=== PATIENT | female | born 1940 | race Caucasian/White ===

== ENCOUNTER → 2017-02-19 | Outpatient (CLI) | payer MEDICARE, BC ==
[2015-11-06 18:30] VITALS: BP 124/72
[~2017-02-19] MED LIST: AZIT250T PO; CIPR500T94 PO; FAMO-63 PO; MELO7.5T29 PO; METO25TA2 PO; ONDA4TAB10 PO
--- NOTE | 2017-02-19 13:53 | RAD ---
DATE: February 19, 2017 EXAM: MAMMO DONN SCREENING BILATERAL HISTORY: Screening study. COMPARISON: 2014 and 2015. This study was interpreted with the benefit of Computerized Aided Detection (CAD). 2-D digital mammographic views of both breasts were performed in the CC and MLO projections. 3-D digital tomosynthesis of both breasts were performed in the CC and MLO projections and reviewed on a computer workstation. FINDINGS: The breast parenchyma heterogeneiously dense, which could reduce sensitivity of mammography. There are no dominant suspicious masses, suspicious microcalcifications or evidence of architectural distortion. IMPRESSION: No mammographic indicators for malignancy. BI-RADS CATEGORY: 1 NEGATIVE RECOMMENDED FOLLOW-UP: 12M 12 MONTH FOLLOW-UP PQRS compliance statement: Patient information was entered into a reminder system with a target due date February 20, 2018 for the next mammogram. Mammography is a sensitive method for finding small breast cancers, but it does not detect them all and is not a substitute for careful clinical examination. A negative mammogram does not negate a clinically suspicious finding and should not result in delay in biopsying a clinically suspicious abnormality. "Our facility is accredited by the [employer] [place] [employer] Mammography [employer]." The patient's breast density may affect the ability of mammography to detect breast cancer. There are 4 categories of breast density, A, B, C and D. Breast density A means that most of the breast tissue is replaced with adipose tissue and therefore is not dense. Breast density B means that the breast tissue is mildly dense and scattered. Breast density C means that the breast tissue is heterogeneously dense. Breast density D means that the breast tissue is very dense. Breast densities especially C and D may decrease the sensitivity of mammography to detect breast cancer. Therefore, the patient may benefit from 3-D breast mammography (3D breast tomography) as a part of their screening mammogram. Insurance may or may not pay for this additional imaging. The patient's breast density based on today's mammogram is category C.
== END | disposition home or self-care (01) ==
LOC: MAMMO 10:50
PROVIDERS: ATTEND Specialist
DX: Z12.31 Encounter for screening mammogram for malignant neoplasm of breast (principal)
CPT/HCPCS: 77063; G0202; 77067

== ENCOUNTER 2017-03-04 14:45 | Inpatient (IN) | payer MEDICARE, BC ==
[~2017-03-04] VITALS: Ht 165.1 cm; Wt 52.3 kg
[2017-03-04] MEDS ORDERED: ONDANSETRON PF 4 MG/2 ML VIAL. IV ONE (15:15)
[2017-03-04] MEDS ORDERED: IV NORMAL SALINE 1,000ML 1,000 ML IV ONE (15:15)
--- NOTE | 2017-03-04 15:15 | ED.ADGEN ---
Past History Past Medical History: Anxiety, Arthritis, Depression, Diabetes, Gallstones, GERD, Hypertension, UTI Past Surgical History: No Surgical History Smoking: Non-smoker Alcohol Use: None Drug Use: None Adult General Chief Complaint Chief Complaint Nausea and vomiting HPI HPI Patient is a 76-year-old female presents with midepigastric pain, nausea with written daily episodes of watery and loose stools. Symptoms began several days ago. Patient also reports chills, and malaise. No vomiting, CP or SOB. Review of Systems Review of Systems ROS as per HPI Current Medications Current Medications Current Medications Medications (Trade) Dose Ordered Sig/Kristina Start Time Stop Time Status Last Admin Dose Admin Famotidine (Pepcid) 20 mg 1X ONCE 03/04/17 15:30 03/04/17 15:31 DC 03/04/17 15:20 20 MG Ondansetron HCl (Zofran) 8 mg 1X ONCE 03/04/17 15:15 03/04/17 15:16 DC 03/04/17 15:15 8 MG Promethazine HCl 12.5 mg/Sodium Chloride 50.5 ml @ 101 mls/hr PRN Q6HRS PRN 03/04/17 17:00 Sodium Chloride 1,000 ml @ 40 mls/hr 1X ONCE 03/04/17 15:15 03/05/17 16:14 03/04/17 15:15 40 MLS/HR Allergies Allergies Allergies Coded Allergies Type Severity Reaction Last Updated Verified Nitrofurantoin Macrocrystal Allergy Unknown 12/31/13 Yes Sulfa (Sulfonamide Antibiotics) Allergy Unknown 10/31/13 Yes adhesive Allergy Unknown 03/04/17 Yes amoxicillin Allergy Unknown Unknown 08/20/15 Yes atenolol Allergy Unknown 10/31/13 Yes azithromycin Allergy Unknown Hives 08/20/15 Yes ciprofloxacin Allergy Unknown 03/04/17 Yes clavulanic acid Allergy Unknown Unknown 08/20/15 Yes diphenhydramine Allergy Unknown Unknown 08/20/15 Yes guaifenesin Allergy Unknown 03/04/17 Yes nitrofurantoin Allergy Unknown 12/31/13 Yes prednisone Allergy Unknown Unknown 08/20/15 Yes tetanus and diphtheria toxoids Allergy Unknown 12/31/13 Yes Physical Exam Physical Exam Constitutional: Well developed, well nourished, no acute distress. HENT: Normocephalic, atraumatic, bilateral external ears normal, oropharynx moist. Eyes: PERRLA, EOMI, conjunctiva normal. Neck: Normal range of motion, no tenderness. Cardiovascular:Heart rate regular rhythm. Lungs & Thorax: Bilateral breath sounds clear to auscultation. Abdomen: Bowel sounds normal, soft, mid-epigastric pain. Skin: Clammy. Back: No tenderness. Extremities: No tenderness. Neurologic: Alert and oriented X 3, normal motor function, normal sensory function, no focal deficits noted. Psychologic: Affect, anxious. Current Patient Data Vital Signs Vital Signs Date Time Temp Pulse Resp B/P (MAP) Pulse Ox O2 Delivery O2 Flow Rate FiO2 03/04/17 16:38 58 18 154/79 (104) 98 Room Air 03/04/17 15:02 97.9 Lab Results Laboratory Tests Test 03/04/17 15:10 03/04/17 15:40 White Blood Count 7.0 x10^3/uL (4.0-11.0) Red Blood Count 4.42 x10^6/uL (3.50-5.40) Hemoglobin 13.7 g/dL (12.0-15.5) Hematocrit 39.1 % (36.0-47.0) Mean Corpuscular Volume 88 fL (79-100) Mean Corpuscular Hemoglobin 31 pg (25-35) Mean Corpuscular Hemoglobin Concent 35 g/dL (31-37) Red Cell Distribution Width 12.3 % (11.5-14.5) Platelet Count 198 x10^3/uL (140-400) Neutrophils (%) (Auto) 75 % (31-73) H Lymphocytes (%) (Auto) 19 % (24-48) L Monocytes (%) (Auto) 5 % (0-9) Eosinophils (%) (Auto) 1 % (0-3) Basophils (%) (Auto) 1 % (0-3) Neutrophils # (Auto) 5.3 x10^3uL (1.8-7.7) Lymphocytes # (Auto) 1.3 x10^3/uL (1.0-4.8) Monocytes # (Auto) 0.3 x10^3/uL (0.0-1.1) Eosinophils # (Auto) 0.0 x10^3/uL (0.0-0.7) Basophils # (Auto) 0.0 x10^3/uL (0.0-0.2) Sodium Level 128 mmol/L (136-145) L Potassium Level 3.7 mmol/L (3.5-5.1) Chloride Level 94 mmol/L (98-107) L Carbon Dioxide Level 23 mmol/L (21-32) Anion Gap 11 (6-14) Blood Urea Nitrogen 14 mg/dL (7-20) Creatinine 0.9 mg/dL (0.6-1.0) Estimated GFR (Cockcroft-Gault) 61.0 BUN/Creatinine Ratio 16 (6-20) Glucose Level 128 mg/dL (70-99) H Calcium Level 8.2 mg/dL (8.5-10.1) L Total Bilirubin 1.1 mg/dL (0.2-1.0) H Aspartate Amino Transferase (AST) 23 U/L (15-37) Alanine Aminotransferase (ALT) 27 U/L (14-59) Alkaline Phosphatase 68 U/L (46-116) C-Reactive Protein 0.7 mg/L (0-3.3) Total Protein 6.7 g/dL (6.4-8.2) Albumin 4.0 g/dL (3.4-5.0) Albumin/Globulin Ratio 1.5 (1.0-1.7) Lipase 215 U/L (73-393) Urine Collection Type Unknown Urine Color Colorless Urine Clarity Clear Urine pH 6.5 Urine Specific [place] <=1.005 Urine Protein Neg (NEG-TRACE) Urine Glucose (UA) Neg mg/dL (NEG) Urine Ketones (Stick) Neg mg/dL (NEG) Urine Blood Neg (NEG) Urine Nitrite Neg (NEG) Urine Bilirubin Neg (NEG) Urine Urobilinogen Dipstick 0.2 mg/dL (0.2 mg/dL) Urine Leukocyte Esterase Neg (NEG) Urine RBC 0 /HPF (0-2) Urine WBC 0 /HPF (0-4) Urine Squamous Epithelial Cells None /LPF Urine Bacteria 0 /HPF (0-FEW) EKG EKG [EKG, NSR, rate 65, now acute ST-T wave changes. QTC 421.] Radiology/Procedures Radiology/Procedures [Single organ ultrasound: Gallbladder, no acute ds per radiology report.] Course & Med Decision Making Course & Med Decision Making Pertinent Labs and Imaging studies reviewed. (See chart for details) Hyponatremia and persistent nausea and vomiting in the ED. Gallbladder ultrasound unremarkable IV fluids and repeat antiemetics given. Yordan Thorne to admit.] Final Impression Final Impression [1. Hyponatremia 2. Nausea and vomiting] Problems: Dragon Disclaimer Dragon Disclaimer This electronic medical record was generated, in whole or in part, using a voice recognition dictation system. KING RAUSCH DO Mar 04, 2017 15:15
[2017-03-04 15:26] LABS: BASO % 1 % (0-3); EOS % 1 % (0-3); HEMATOCRIT 39.1 % (36.0-47.0); HEMOGLOBIN 13.7 g/dL (12.0-15.5); LYMPH # 1.3 x10^3/uL (1.0-4.8); LYMPH % 19 % (24-48); MEAN CORPUSCULAR HEMOGLOBIN 31 pg (25-35); MEAN CORPUSCULAR HGB CONC 35 g/dL (31-37); MEAN CORPUSCULAR VOLUME 88 fL (79-100); MONO # 0.3 x10^3/uL (0.0-1.1); MONO % 5 % (0-9); NEUT # 5.3 x10^3uL (1.8-7.7); NEUT % 75 % (31-73); PLATELET COUNT 198 x10^3/uL (140-400); RED BLOOD COUNT 4.42 x10^6/uL (3.50-5.40); RED CELL DISTRIBUTION WIDTH 12.3 % (11.5-14.5)
[2017-03-04] MEDS ORDERED: FAMOTIDINE 20 MG/2 ML VIAL IVP ONE (15:30)
[2017-03-04 15:39] LABS: ALBUMIN/GLOBULIN RATIO 1.5 (1.0-1.7); C REACTIVE PROTEIN 0.7 mg/L (0-3.3); CALCIUM 8.2 mg/dL (8.5-10.1); CREATININE 0.9 mg/dL (0.6-1.0); POTASSIUM 3.7 mmol/L (3.5-5.1); TOTAL BILIRUBIN 1.1 mg/dL (0.2-1.0); TOTAL PROTEIN 6.7 g/dL (6.4-8.2)
--- NOTE | 2017-03-04 16:02 | EKG ---
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
[2017-03-04 16:26] LABS: BILIRUBIN,URINE NEG (NEG); CLARITY,URINE CLEAR; COLOR,URINE COLORLESS; GLUCOSE,URINE NEG (NEG)
[2017-03-04 16:27] LABS: BACTERIA,URINE 0 /HPF (0-FEW); NITRITE,URINE NEG (NEG); RBC,URINE 0 /HPF (0-2); UROBILINOGEN,URINE 0.2 mg/dL (0.2 mg/dL); WBC,URINE 0 /HPF (0-4)
--- NOTE | 2017-03-04 16:34 | RAD ---
Right upper quadrant abdominal ultrasound, 03/04/2017: History: Right upper quadrant abdominal pain The gallbladder is not well distended, probably related to the patient's nonfasting state. No gallstones are seen. No gallbladder sams are not thickened. No bile duct dilatation is seen. There is no evidence of a hepatic mass. The visualized portions of the pancreatic body are unremarkable. Other portions of the pancreas were not clearly visualized. The right kidney is unremarkable. IMPRESSION: No significant abnormality is detected.
[2017-03-04] MEDS ORDERED: PROMETHAZINE 12.5 MG in IV NORMAL SALINE 50ML 50 ML IV PRN (17:00)
[2017-03-04] MEDS ORDERED: IV NORMAL SALINE 50ML 50 ML ONE (17:02)
[2017-03-04] MEDS ORDERED: PROMETHAZINE 25 MG/ML VIAL IV ONE (17:02)
[2017-03-04 20:03] VITALS: BP 165/78
[2017-03-04] MEDS ORDERED: ONDANSETRON PF 4 MG/2 ML VIAL. IV PRN (21:00)
[2017-03-04] MEDS ORDERED: MELOXICAM 7.5 MG TABLET PO PRN (21:00)
[2017-03-04] MEDS ORDERED: ACETAMINOPHEN 325 MG TABLET PO PRN (21:00)
[2017-03-04] MEDS ORDERED: METOPROLOL SUCC 24HR ER 25 MG TAB.ER.24H. PO SCH (21:15)
[2017-03-04] MEDS: IV NORMAL SALINE 1,000ML 1,000 ML IV SCH (21:18)
[2017-03-05 00:11] VITALS: BP 121/54
[2017-03-05 06:07] VITALS: BP 146/78
[2017-03-05 06:23] LABS: BASO % 1 % (0-3); EOS # 0.1 x10^3/uL (0.0-0.7); EOS % 3 % (0-3); HEMATOCRIT 36.6 % (36.0-47.0); HEMOGLOBIN 12.7 g/dL (12.0-15.5); LYMPH # 1.8 x10^3/uL (1.0-4.8); LYMPH % 41 % (24-48); MEAN CORPUSCULAR HEMOGLOBIN 31 pg (25-35); MEAN CORPUSCULAR HGB CONC 35 g/dL (31-37); MEAN CORPUSCULAR VOLUME 89 fL (79-100); MONO # 0.3 x10^3/uL (0.0-1.1); MONO % 7 % (0-9); NEUT # 2.2 x10^3uL (1.8-7.7); NEUT % 49 % (31-73); PLATELET COUNT 176 x10^3/uL (140-400); RED CELL DISTRIBUTION WIDTH 12.8 % (11.5-14.5); WHITE BLOOD COUNT 4.5 x10^3/uL (4.0-11.0)
[2017-03-05] MEDS: IV NORMAL SALINE 1,000ML 1,000 ML IV SCH (06:24)
[2017-03-05 06:40] LABS: ALBUMIN 3.2 g/dL (3.4-5.0); ALBUMIN/GLOBULIN RATIO 1.3 (1.0-1.7); CALCIUM 8.1 mg/dL (8.5-10.1); GFR 54.1; MAGNESIUM 2.3 mg/dL (1.8-2.4); POTASSIUM 4.4 mmol/L (3.5-5.1); TOTAL BILIRUBIN 0.9 mg/dL (0.2-1.0); TOTAL PROTEIN 5.6 g/dL (6.4-8.2)
--- NOTE | 2017-03-05 06:46 | ACF ---
Admission Criteria Forms HYPONATREMIA; HYPERNATREMIA; HYPOKALEMIA; HYPERKALEMIA; HYPOCALCEMIA; HYPERCALCEMIA Clinical Indications for Inpatient Care (Place 'X' for any and all applicable criteria): Ongoing inpatient care may be indicated for ANY ONE of the following [G](1)(2)(3 )(5): [X ]I. Hyponatremia with ANY ONE of the following: [ X]a) Sodium less than 130 mEq/L (mmol/L) (new) (6)(22) [ ]b) Sodium less than 135 mEq/L (mmol/L) with ANY ONE of the following: [ ]i) Severe medical etiology requiring inpatient management (eg, heart failure, hypovolemia) [ ]ii) Altered mental status [ ]iii) Seizures [ ]II. Hypernatremia with ANY ONE of the following: [ ]a) Sodium greater than 155 mEq/L (mmol/L) [ ]b) Sodium greater than 150 mEq/L (mmol/L) with ANY ONE of the following: [ ] i) Altered mental status [ ]ii) Seizures [ ]iii) Severe medical etiology (eg, hypovolemia, diabetes insipidus) [ ]iv) Severe weakness [ ]v) Severe medical etiology (eg, hemolysis, infection, drug overdose) [ ]III. Hypokalemia with ANY ONE of the following: [ ]a) Potassium less than 2.5 mEq/L (mmol/L) despite outpatient and emergency treatment [ ]b) Potassium less than 3.0 mEq/L (mmol/L) with ANY ONE of the following: [ ]i) Weakness [ ]ii) Cardiac abnormality (eg, arrhythmia, conduction disturbance) [ ]iii) Cardiac ischemia [ ]iv) Ileus [ ]v) Ongoing medical cause requiring inpatient management. ( e.g., acute renal wasting, SIADH) [ ]vi) Other severe symptoms [ ] IV. Hyperkalemia with ANY ONE of the following: [ ]a) Potassium greater than 6.5 mEq/L (mmol/L) [ ]b) Potassium greater than 5 mEq/L (mmol/L) with ANY ONE of the following: [ ]i) Severe ECG findings [H] [ ]ii) Acute worsening of renal failure (creatinine greater than 2.5 mg/dL (221 micromoles/L) or significant elevation for age and size) [ ] V. Hypocalcemia with ANY ONE of the following: [ ]a) Calcium less than 7 mg/dL (1.75 mmol/L) despite outpatient and emergency treatment(19) [ ]b) Calcium less than 8 mg/dL (2 mmol/L) with significant symptoms or findings; examples include: [ ]i) Cardiac abnormality (eg, arrhythmia or conduction disturbance) [ ]ii) Altered mental status [ ]iii) Seizures [ ]iv) Breathing difficulty [ ]v) Muscle spasms [ ]. Hypercalcemia with ANY ONE of the following: [ ]a) Calcium greater than 14 mg/dL (3.5 mmol/L) [ ]b) Calcium greater than 12 mg/dL (3 mmol/L) with ANY ONE of the following: [ ]i) Significant dehydration or hypovolemia as indicated by ANY ONE of the following(2): [ ]1. Clinically significant dehydration as indicated by ANY ONE of the following: [ ]A. Acute loss of weight from baseline (5% of body weight in adults, 9% in pediatric patients) [ ]B. Hemodynamic instability [ ]C. Acute renal failure [ ]D. Serum sodium greater than 150 mEq/L (mmol/L) [ ]2) Dehydration that is persistent indicated by ALL of the following: [ ]A. Oral rehydration therapy not tolerated or insufficient to adequately correct dehydration [ ]B. Appropriate intravenous treatment (eg, fluids ) does not readily correct dehydration ie, after 12 to 24 hours of treatment) [ ]ii) Significant symptoms or findings; examples include: [ ]1) Altered mental status [ ]2) Cardiac abnormality (eg, arrhythmia, conduction disturbance) [ ]3) Cardiac abnormality (eg, arrhythmia, conduction disturbance) The original [facility] content created by [facility] has been revised. The portions of the content which have been revised are identified through the use of italic text or in bold, and [facility] has neither reviewed nor approved the modified material. All other unmodified content is copyright [facility] Please see references footnoted in the original [facility] [employer] edition 2016 Admission Criteria Met?: Yes MARCY CAPPS Mar 05, 2017 06:46
--- NOTE | 2017-03-05 07:33 | RAD ---
Right index finger, 3 views, 03/04/2017: History: Injury There is moderate hypertrophic degenerative change at the DIP joint. A tiny calcific density along the dorsal aspect of that joint is probably old. No acute fracture or dislocation is identified. IMPRESSION: No acute bony abnormality is detected.
[2017-03-05] MEDS ORDERED: METOPROLOL SUCC 24HR ER 25 MG TAB.ER.24H. PO SCH (09:00)
[2017-03-05 11:05] VITALS: BP 127/64
[2017-03-05] MEDS ORDERED: FAMO20TA38 PO (13:42)
--- NOTE | 2017-03-05 14:00 | PDOC3 ---
Discharge Summary Visit Information Date of Admission: Mar 04, 2017 Date of Discharge: Mar 05, 2017 Final Diagnosis Problems Medical Problems: (1) Hyponatremia Status: Acute (2) Vomiting Status: Acute (3) nausea (4) HTN (5)diarrhea (6) right index finger hematoma (8) IBS Problems: Brief Hospital Course Allergies Allergies Coded Allergies Type Severity Reaction Last Updated Verified Nitrofurantoin Macrocrystal Allergy Intermediate 03/05/17 Yes Sulfa (Sulfonamide Antibiotics) Allergy Intermediate 03/05/17 Yes adhesive Allergy Intermediate 03/05/17 Yes amoxicillin Allergy Intermediate Unknown 03/05/17 Yes atenolol Allergy Intermediate 03/05/17 Yes azithromycin Allergy Intermediate Hives 03/05/17 Yes ciprofloxacin Allergy Intermediate 03/05/17 Yes clavulanic acid Allergy Intermediate Unknown 03/05/17 Yes diphenhydramine Allergy Intermediate Unknown 03/05/17 Yes guaifenesin Allergy Intermediate 03/05/17 Yes nitrofurantoin Allergy Intermediate 03/05/17 Yes prednisone Allergy Intermediate Unknown 03/05/17 Yes tetanus and diphtheria toxoids Allergy Intermediate 03/05/17 Yes Vital Signs Physical EXAM: Pleasant female in no acute distress. Head normocephalic, ears normal, nose patent , throat clear, lungs clear to auscultationk CVRRR, Abdomen , soft, mildly protuberant, loud borborigmus bowel sounds, non tender in all quadrants. Extremities withour edema. Gait normal MS- right index finger has a moderate sized subungual hematoma. Vital Signs Date Time Temp Pulse Resp B/P (MAP) Pulse Ox O2 Delivery O2 Flow Rate FiO2 03/05/17 11:05 98.5 64 20 127/64 (85) 98 Room Air Lab Results Noted sodium o 128, with dilute urine. Laboratory Tests Test 03/04/17 15:10 03/04/17 15:40 03/05/17 05:41 White Blood Count 7.0 x10^3/uL (4.0-11.0) 4.5 x10^3/uL (4.0-11.0) Red Blood Count 4.42 x10^6/uL (3.50-5.40) 4.10 x10^6/uL (3.50-5.40) Hemoglobin 13.7 g/dL (12.0-15.5) 12.7 g/dL (12.0-15.5) Hematocrit 39.1 % (36.0-47.0) 36.6 % (36.0-47.0) Mean Corpuscular Volume 88 fL (79-100) 89 fL (79-100) Mean Corpuscular Hemoglobin 31 pg (25-35) 31 pg (25-35) Mean Corpuscular Hemoglobin Concent 35 g/dL (31-37) 35 g/dL (31-37) Red Cell Distribution Width 12.3 % (11.5-14.5) 12.8 % (11.5-14.5) Platelet Count 198 x10^3/uL (140-400) 176 x10^3/uL (140-400) Neutrophils (%) (Auto) 75 % (31-73) 49 % (31-73) Lymphocytes (%) (Auto) 19 % (24-48) 41 % (24-48) Monocytes (%) (Auto) 5 % (0-9) 7 % (0-9) Eosinophils (%) (Auto) 1 % (0-3) 3 % (0-3) Basophils (%) (Auto) 1 % (0-3) 1 % (0-3) Neutrophils # (Auto) 5.3 x10^3uL (1.8-7.7) 2.2 x10^3uL (1.8-7.7) Lymphocytes # (Auto) 1.3 x10^3/uL (1.0-4.8) 1.8 x10^3/uL (1.0-4.8) Monocytes # (Auto) 0.3 x10^3/uL (0.0-1.1) 0.3 x10^3/uL (0.0-1.1) Eosinophils # (Auto) 0.0 x10^3/uL (0.0-0.7) 0.1 x10^3/uL (0.0-0.7) Basophils # (Auto) 0.0 x10^3/uL (0.0-0.2) 0.0 x10^3/uL (0.0-0.2) Sodium Level 128 mmol/L (136-145) 147 mmol/L (136-145) Potassium Level 3.7 mmol/L (3.5-5.1) 4.4 mmol/L (3.5-5.1) Chloride Level 94 mmol/L (98-107) 112 mmol/L (98-107) Carbon Dioxide Level 23 mmol/L (21-32) 29 mmol/L (21-32) Anion Gap 11 (6-14) 6 (6-14) Blood Urea Nitrogen 14 mg/dL (7-20) 10 mg/dL (7-20) Creatinine 0.9 mg/dL (0.6-1.0) 1.0 mg/dL (0.6-1.0) Estimated GFR (Cockcroft-Gault) 61.0 54.1 BUN/Creatinine Ratio 16 (6-20) 10 (6-20) Glucose Level 128 mg/dL (70-99) 91 mg/dL (70-99) Calcium Level 8.2 mg/dL (8.5-10.1) 8.1 mg/dL (8.5-10.1) Total Bilirubin 1.1 mg/dL (0.2-1.0) 0.9 mg/dL (0.2-1.0) Aspartate Amino Transf (AST/SGOT) 23 U/L (15-37) 16 U/L (15-37) Alanine Aminotransferase (ALT/SGPT) 27 U/L (14-59) 21 U/L (14-59) Alkaline Phosphatase 68 U/L (46-116) 55 U/L (46-116) C-Reactive Protein 0.7 mg/L (0-3.3) Total Protein 6.7 g/dL (6.4-8.2) 5.6 g/dL (6.4-8.2) Albumin 4.0 g/dL (3.4-5.0) 3.2 g/dL (3.4-5.0) Albumin/Globulin Ratio 1.5 (1.0-1.7) 1.3 (1.0-1.7) Lipase 215 U/L (73-393) Urine Collection Type Unknown Urine Color Colorless Urine Clarity Clear Urine pH 6.5 Urine Specific [place] <=1.005 Urine Protein Neg (NEG-TRACE) Urine Glucose (UA) Neg mg/dL (NEG) Urine Ketones (Stick) Neg mg/dL (NEG) Urine Blood Neg (NEG) Urine Nitrite Neg (NEG) Urine Bilirubin Neg (NEG) Urine Urobilinogen Dipstick 0.2 mg/dL (0.2 mg/dL) Urine Leukocyte Esterase Neg (NEG) Urine RBC 0 /HPF (0-2) Urine WBC 0 /HPF (0-4) Urine Squamous Epithelial Cells None /LPF Urine Bacteria 0 /HPF (0-FEW) Magnesium Level 2.3 mg/dL (1.8-2.4) Brief Hospital Course Ms. Yu is a 76 old female who presented with several day complaint of upset stomach, not in her stomach, nausea, she denies throwing up, and diarrhea twice yesterday, no unusual food intake. She did feel some chills but did not take her temperature. She was by herself and was concerned and so came to the hospital. [place] [address] [place] [address] and is out there constantly. She admits to drinking a large amount of water. Constantly drinking water. Past medical history hypertension Rheumatoid arthritis, polymyalgia rheumatica, and recurrent abdominal pain, she has been worked up and her hip and the scan from 1 year ago was negative. Ultrasounds also negative in the past. recent smashed index finger on the right. [id number] list Medications-see list-takes Pepsid occasionally and Gas x. ROS_ chills, feverish, weight loss over the last several months, no chestpain, SOb,, Positive GAS, Midepigastric pain. Loose stools. Positive personal stress, did not elaborate She was treated with normal saline and her sodium corrected itself. Her stools were semi formed and a C Dif was not done. She has [facility] pending. She was advised against excessive water drinking as this can affect her sodium. See discharge instructions. Discharge Information Condition at Discharge: Improved Follow Up: Weeks (1 week to have sodium rechecked) Disposition/Orders: D/C to Home Dischare Medications Current Medications Sodium Chloride 1,000 ml @ 40 mls/hr 1X ONCE IV Last administered on 15:15; Start 03/04/17 at 15:15; Stop 03/05/17 at 16:14 Ondansetron HCl (Zofran) 8 mg 1X ONCE IV Last administered on 03/04/17 15:15 ; Start 03/04/17 at 15:15; Stop 03/04/17 at 15:16; Status DC Famotidine (Pepcid) 20 mg 1X ONCE IVP Last administered on 03/04/17 15:20; Start 03/04/17 at 15:30; Stop 03/04/17 at 15:31; Status DC Promethazine HCl 12.5 mg/Sodium Chloride 50.5 ml @ 101 mls/hr PRN Q6HRS PRN IV NAUSEA/VOMITING Last administered on 03/04/17 17:04; Start 03/04/17 at 17:00 Promethazine HCl (Phenergan) 25 mg STK-MED ONCE IV ; Start 03/04/17 at 17:02; Stop 03/04/17 at 17:03; Status DC Sodium Chloride 50 ml @ As Directed STK-MED ONCE .ROUTE ; Start 03/04/17 at 17: 02; Stop 03/04/17 at 17:03; Status DC Sodium Chloride 1,000 ml @ 100 mls/hr Q10H IV Last administered on 03/04/17 21:18; Start 03/04/17 at 21:00; Stop 03/05/17 at 06:46; Status DC Ondansetron HCl (Zofran) 4 mg PRN Q6HRS PRN IV NAUSEA/VOMITING; Start 03/04/17 at 21:00 Acetaminophen (Tylenol) 650 mg PRN Q6HRS PRN PO PAIN / TEMP; Start 03/04/17 at 21:00 Meloxicam (Mobic) 7.5 mg PRN BID PRN PO ARTHRITIS; Start 03/04/17 at 21:00 Metoprolol Succinate (Toprol Xl) 12.5 mg DAILY PO Last administered on 08:12; Start 03/05/17 at 09:00 Metoprolol Succinate (Toprol Xl) 12.5 mg HS PO Last administered on 03/04/17 21:19; Start 03/04/17 at 21:15 Active Scripts Active Reported Toprol Xl (Metoprolol Succinate) 25 Mg Tab.er.24h 0.5 Tab PO HS Meloxicam 7.5 Mg Tablet 7.5 Mg PO PRN BID PRN Toprol Xl (Metoprolol Succinate) 25 Mg Tab.er.24h 0.5 Tab PO DAILY Patient Instructions Patient Instuctions See instructions on [place], for meds se MARIELLA ALCAZAR DO Mar 05, 2017 14:00
== END 2017-03-05 18:30 | disposition home or self-care (01) | DRG 641 ==
LOC: ER 14:45 → 1 SOUTH 20:01
PROVIDERS: ADMIT Family Medicine; ATTEND Family Medicine
DX: E87.1 Hypo-osmolality and hyponatremia (principal); Z68.1 Body mass index [BMI] 19.9 or less, adult; I10 Essential (primary) hypertension; E11.9 Type 2 diabetes mellitus without complications; K21.9 Gastro-esophageal reflux disease without esophagitis; K58.0 Irritable bowel syndrome with diarrhea; M06.9 Rheumatoid arthritis, unspecified; M35.3 Polymyalgia rheumatica; S60.021A Contusion of right index finger without damage to nail, initial encounter; X58.XXXA Exposure to other specified factors, initial encounter; F32.9 Major depressive disorder, single episode, unspecified; F41.9 Anxiety disorder, unspecified; R63.4 Abnormal weight loss; M19.90 Unspecified osteoarthritis, unspecified site; Z87.440 Personal history of urinary (tract) infections; Y93.89 Activity, other specified; Y92.89 Other specified places as the place of occurrence of the external cause; Y99.8 Other external cause status; Z88.1 Allergy status to other antibiotic agents; Z88.2 Allergy status to sulfonamides; Z88.7 Allergy status to serum and vaccine; Z88.8 Allergy status to other drugs, medicaments and biological substances
CPT/HCPCS: 36415; 73140; 76705; 80053; 81001; 83690; 83735; 84443; 85027; 86140; 87040; 93005; 96361; 96365; 96375; J2405; J2550; S0028; 99285-25; J7030

== ENCOUNTER 2017-03-14 09:20 | Emergency (ER) | payer MEDICARE, BC ==
[~2017-03-14 09:20] MED LIST changes: +FAMO20TA38 PO
--- NOTE | 2017-03-14 10:29 | PHYS DOC ---
Past History Past Medical History: Anxiety, Arthritis, Depression, Diabetes, Gallstones, GERD, Hypertension, UTI Past Surgical History: No Surgical History Smoking: Non-smoker Alcohol Use: None Drug Use: None Adult General Chief Complaint Chief Complaint: ABDOMINAL PAIN HPI HPI Patient is a 76 year old F who presents with abdominal pain diarrhea and nausea. Mckenna states that she has had these symptoms over the past 3-4 months. She does not feel that her symptoms have changed. She does not have any other associated symptoms. She has been seen in the emergency room multiple times for the same complaint and was discharged from the hospital with the same issue on . She does not feel her symptoms have improved during this time. Review of Systems Review of Systems Constitutional: Denies fever or chills [] Eyes: Denies change in visual acuity, redness, or eye pain [] HENT: Denies nasal congestion or sore throat [] Respiratory: Denies cough or shortness of breath [] Cardiovascular: No additional information not addressed in HPI [] GI: Negative except history of present illness : Denies dysuria or hematuria [] Musculoskeletal: Denies back pain or joint pain [] Integument: Denies rash or skin lesions [] Neurologic: Denies headache, focal weakness or sensory changes [] Endocrine: Denies polyuria or polydipsia [] Family History Family History Noncontributory Current Medications Current Medications Home medications were reviewed Allergies Allergies Coded Allergies Type Severity Reaction Last Updated Verified Nitrofurantoin Macrocrystal Allergy Intermediate 03/05/17 Yes Sulfa (Sulfonamide Antibiotics) Allergy Intermediate 03/05/17 Yes adhesive Allergy Intermediate 03/05/17 Yes amoxicillin Allergy Intermediate Unknown 03/05/17 Yes atenolol Allergy Intermediate 03/05/17 Yes azithromycin Allergy Intermediate Hives 03/05/17 Yes ciprofloxacin Allergy Intermediate 03/05/17 Yes clavulanic acid Allergy Intermediate Unknown 03/05/17 Yes diphenhydramine Allergy Intermediate Unknown 03/05/17 Yes guaifenesin Allergy Intermediate 03/05/17 Yes nitrofurantoin Allergy Intermediate 03/05/17 Yes prednisone Allergy Intermediate Unknown 03/05/17 Yes tetanus and diphtheria toxoids Allergy Intermediate 03/05/17 Yes Physical Exam Physical Exam Constitutional: Well developed, well nourished, no acute distress, non-toxic appearance. Anxious appearing HENT: Normocephalic, atraumatic, bilateral external ears normal, oropharynx moist, no oral exudates, nose normal. [] Eyes: PERRLA, EOMI, conjunctiva normal, no discharge. [] Neck: Normal range of motion, no tenderness, supple, no stridor. [] Cardiovascular:Heart rate regular rhythm, no murmur [] Lungs & Thorax: Bilateral breath sounds clear to auscultation [] Abdomen: Bowel sounds normal, soft, no tenderness, no masses, no pulsatile masses. [] Nonfocal mild tenderness Skin: Warm, dry, no erythema, no rash. [] Back: No tenderness, no CVA tenderness. [] Extremities: No tenderness, no cyanosis, no clubbing, ROM intact, no edema. [] Neurologic: Alert and oriented X 3, normal motor function, normal sensory function, no focal deficits noted. [] Psychologic: Affect normal, judgement normal, [id number] anxiety, tangential thought process - frequently talking about unrelated issues Current Patient Data Vital Signs Vital Signs Date Time Temp Pulse Resp B/P (MAP) Pulse Ox O2 Delivery O2 Flow Rate FiO2 03/14/17 09:25 98.0 78 18 98 Room Air Lab Results Laboratory Tests Test 03/14/17 10:20 03/14/17 11:12 Urine Collection Type Unknown Urine Color Yellow Urine Clarity Hazy Urine pH 6.0 Urine Specific [place] <=1.005 Urine Protein Neg (NEG-TRACE) Urine Glucose (UA) Neg mg/dL (NEG) Urine Ketones (Stick) Neg mg/dL (NEG) Urine Blood Neg (NEG) Urine Nitrite Neg (NEG) Urine Bilirubin Neg (NEG) Urine Urobilinogen Dipstick 0.2 mg/dL (0.2 mg/dL) Urine Leukocyte Esterase Trace (NEG) Urine RBC Rare /HPF (0-2) Urine WBC Rare /HPF (0-4) Urine Squamous Epithelial Cells Occ /LPF Urine Bacteria 0 /HPF (0-FEW) Bedside Hemoglobin 14.3 gm/dL Bedside Hematocrit 42 % Bedside Sodium 141 mmol/L (135-145) Bedside Potassium 3.6 mmol/L (3.5-5.0) Bedside Chloride 106 mmol/L (98-110) Bedside Total CO2 20 mmol/L (23-32) Anion Gap 20 mmol/L (6-14) Bedside Blood Urea Nitrogen 10 mg/dL (8-26) Bedside Creatinine 1.1 mg/dL (0.5-1.4) Glucose Level 119 mg/dL (60-99) Bedside Ionized Calcium (Nehemiah) 1.07 mmol/L (1.13-1.32) EKG EKG [] Course & Med Decision Making Course & Med Decision Making Pertinent Labs and Imaging studies reviewed. (See chart for details) Mckenna's symptoms have been unchanged over the past 3-4 months making and emergency condition extremely unlikely. She did appear to be anxious throughout her evaluation with occasional mild hyperventilation. She was not consistently tachypneic which may represent a metabolic condition. She was advised to consider a GI consult and or follow-up with her primary care doctor. She did have an appointment with her primary care doctor today which she did not go to in order to come to the emergency room. Dragon Disclaimer Dragon Disclaimer This chart was dictated in whole or in part using Voice Recognition software in a busy, high-work load, and often noisy Emergency Department environment. It may contain unintended and wholly unrecognized errors or omissions. Departure Departure: Impression: Primary Impression: Gastroenteritis Disposition: 01 HOME, SELF-CARE Condition: STABLE Referrals: ALEIDA CABELLO MD (PCP) Patient Instructions: Viral Gastroenteritis Additional Instructions: Mckenna was seen in the ED for nausea, abdominal pain, and diarrhea. No emergency medical condition was found during the history and physical exam. She did have normal labs. She was advised to follow up with her primary care doctor and/or a GI doctor as soon as possible for further management of her chronic condition NAM WONG MD Mar 14, 2017 10:29
[2017-03-14 11:05] LABS: BACTERIA,URINE 0 /HPF (0-FEW); BILIRUBIN,URINE NEG (NEG); CLARITY,URINE HAZY; COLOR,URINE YELLOW; GLUCOSE,URINE NEG (NEG); NITRITE,URINE NEG (NEG); RBC,URINE RARE /HPF (0-2); SQUAMOUS EPITHELIAL CELL,UR OCC /LPF; UROBILINOGEN,URINE 0.2 mg/dL (0.2 mg/dL); WBC,URINE RARE /HPF (0-4)
[2017-03-14 11:17] LABS: HEMOGLOBIN ISTAT 14.3 gm/dL; POTASSIUM ISTAT 3.6 mmol/L (3.5-5.0)
[2017-03-14] MEDS ORDERED: ONDANSETRON ODT 4 MG TAB.RAPDIS PO ONE (11:20)
[2017-03-14 12:00] VITALS: BP 114/94
== END 2017-03-14 12:00 | disposition home or self-care (01) ==
LOC: ER 09:20
DX: K52.9 Noninfective gastroenteritis and colitis, unspecified (principal); E11.9 Type 2 diabetes mellitus without complications; I10 Essential (primary) hypertension; K21.9 Gastro-esophageal reflux disease without esophagitis; M19.90 Unspecified osteoarthritis, unspecified site; Z87.440 Personal history of urinary (tract) infections; Z88.1 Allergy status to other antibiotic agents; Z88.2 Allergy status to sulfonamides; Z88.7 Allergy status to serum and vaccine; Z88.8 Allergy status to other drugs, medicaments and biological substances
CPT/HCPCS: 36415; 80047; 81001; 87086; 99284; Q0162

== ENCOUNTER → 2018-03-13 | Outpatient (CLI) | payer MEDICARE, BC ==
--- NOTE | 2018-03-14 11:18 | RAD ---
DATE: March 14, 2018 EXAM: MAMMO DONN SCREENING BILATERAL HISTORY: Routine screening. COMPARISON: February 13, 2016. February 19, 2017. TECHNIQUE: 2D digital CC and MLO views were obtained. 3D tomosynthesis imaging was performed in the CC and MLO projections. This study was interpreted with the benefit of Computerized Aided Detection (CAD). FINDINGS: The breast parenchyma is extremely dense, category D, which lowers the sensitivity of mammography. There is no worrisome mass or area of architectural distortion. There are no suspicious groupings of microcalcifications. There are a few benign-appearing calcifications. IMPRESSION: Stable mammogram with benign findings. BI-RADS CATEGORY: 2 BENIGN FINDING RECOMMENDED FOLLOW-UP: 12M 12 MONTH FOLLOW-UP PQRS compliance statement: Patient information was entered into a reminder system with a target due date for the next mammogram. Mammography is a sensitive method for finding small breast cancers, but it does not detect them all and is not a substitute for careful clinical examination. A negative mammogram does not negate a clinically suspicious finding and should not result in delay in biopsying a clinically suspicious abnormality. "Our facility is accredited by the [employer] Mammography Program."
== END | disposition home or self-care (01) ==
LOC: MAMMO 08:30
PROVIDERS: ATTEND Specialist
DX: Z12.31 Encounter for screening mammogram for malignant neoplasm of breast (principal); E55.9 Vitamin D deficiency, unspecified; I10 Essential (primary) hypertension; E11.9 Type 2 diabetes mellitus without complications; K21.9 Gastro-esophageal reflux disease without esophagitis
CPT/HCPCS: 77063; 77067

== ENCOUNTER 2018-06-21 19:53 | Emergency (ER) | payer MEDICARE, BC ==
[~2018-06-21] VITALS: Ht 165.1 cm; Wt 51.8 kg
[2018-06-21 20:05] VITALS: BP 172/94
[2018-06-21] MEDS ORDERED: CEPH-281 PO (20:46)
--- NOTE | 2018-06-21 20:46 | PHYS DOC ---
Past History Past Medical History: Anxiety, Arthritis, Depression, Diabetes, Gallstones, GERD, Hypertension, UTI Past Surgical History: No Surgical History Smoking: Non-smoker Alcohol Use: None Drug Use: None Adult General Chief Complaint Chief Complaint: SKIN RASH/ABSCESS [facility] HPI Patient is a 77-year-old female who presents with complaint of rash to her neck and face that has been present for the last few days. Patient indicates that she had been doing some work outdoors, moving some branches and limbs from a tree that had been cut down. She was seen by her primary provider earlier this week and was diagnosed with poison alicia. She was prescribed triamcinolone cream and states that after she put the cream on she had a lot of burning to her skin. Patient indicates that she is allergic to steroids and did not realize that the triamcinolone was a steroid. Patient indicates that she is also allergic to Benadryl. Review of Systems Review of Systems Constitutional: Denies fever or chills [] Eyes: Denies change in visual acuity, redness, or eye pain [] Respiratory: Denies cough or shortness of breath [] Cardiovascular: No additional information not addressed in HPI [] Integument: Positive erythematous rash with some excoriation to the anterior aspect of the neck and cheeks of face bilaterally[] Allergies Allergies Allergies Coded Allergies Type Severity Reaction Last Updated Verified Nitrofurantoin Macrocrystal Allergy Intermediate 03/05/17 Yes Sulfa (Sulfonamide Antibiotics) Allergy Intermediate 03/05/17 Yes adhesive Allergy Intermediate 03/05/17 Yes amoxicillin Allergy Intermediate Unknown 03/05/17 Yes atenolol Allergy Intermediate 03/05/17 Yes azithromycin Allergy Intermediate Hives 03/05/17 Yes ciprofloxacin Allergy Intermediate 03/05/17 Yes clavulanic acid Allergy Intermediate Unknown 03/05/17 Yes diphenhydramine Allergy Intermediate Unknown 03/05/17 Yes guaifenesin Allergy Intermediate 03/05/17 Yes nitrofurantoin Allergy Intermediate 03/05/17 Yes prednisone Allergy Intermediate Unknown 03/05/17 Yes tetanus and diphtheria toxoids Allergy Intermediate 03/05/17 Yes Physical Exam Physical Exam Constitutional: Well developed, well nourished, no acute distress, non-toxic appearance. [] Neck: Normal range of motion, no tenderness, supple, no stridor. [] Cardiovascular:Heart rate regular rhythm, no murmur [] Lungs & Thorax: Bilateral breath sounds clear to auscultation [] Skin: There are excoriated lesions on the anterior aspect of patient's neck as well as the lower cheeks of her face bilaterally. [] Psychologic: Patient very anxious on exam. [] EKG EKG [] Radiology/Procedures Radiology/Procedures [] Course & Med Decision Making Course & Med Decision Making Pertinent Labs and Imaging studies reviewed. (See chart for details) [] Dragon Disclaimer Dragon Disclaimer This electronic medical record was generated, in whole or in part, using a voice recognition dictation system. Departure Departure: Impression: Primary Impression: Contact dermatitis Disposition: HOME, SELF-CARE Condition: STABLE Referrals: ALEIDA CABELLO MD (PCP) Patient Instructions: Contact Dermatitis Scripts Cephalexin (CEPHALEXIN) 250 Mg Capsule 250 MG PO BID for 10 Days, #20 CAP Prov: ALO DUARTE Jr. DO 06/21/18 Problem Qualifiers Primary Impression: Contact dermatitis Contact dermatitis type: irritant Contact dermatitis trigger: unspecified trigger Qualified Codes: L24.9 - Irritant contact dermatitis, unspecified cause ALO DUARTE Jr. DO Jun 21, 2018 20:46
== END 2018-06-21 21:08 | disposition home or self-care (01) ==
LOC: ER 19:53
DX: L24.9 Irritant contact dermatitis, unspecified cause (principal); M19.90 Unspecified osteoarthritis, unspecified site; E11.9 Type 2 diabetes mellitus without complications; K21.9 Gastro-esophageal reflux disease without esophagitis; I10 Essential (primary) hypertension; Z87.440 Personal history of urinary (tract) infections; Z88.1 Allergy status to other antibiotic agents; Z88.2 Allergy status to sulfonamides; Z88.7 Allergy status to serum and vaccine; Z88.8 Allergy status to other drugs, medicaments and biological substances
CPT/HCPCS: 99283

== ENCOUNTER 2018-07-05 14:11 | Emergency (ER) | payer MEDICARE, BC ==
[~2018-07-05] VITALS: Ht 165.1 cm; Wt 51.8 kg
[~2018-07-05 14:11] MED LIST changes: +CEPH-281 PO
[2018-07-05 14:15] VITALS: BP 168/90
--- NOTE | 2018-07-05 15:08 | PHYS DOC ---
Past History Past Medical History: Anxiety, Arthritis, Depression, Diabetes, Gallstones, GERD, Hypertension, UTI Past Surgical History: No Surgical History Smoking: Non-smoker Alcohol Use: None Drug Use: None Adult General Chief Complaint Chief Complaint: SKIN PROBLEM HPI HPI 77-year-old female returns emergency room with continued rash. She has had this rash for over 2 weeks. She has seen her primary care physician as well as the ED twice. This is her second visit. The patient was diagnosed with contact dermatitis and prescribed topical steroids seemed to make it worse. The patient did not realize they were steroids. She is allergic to redness on another steroids in the past. She has been trying to clean the area with cool water and use calamine lotion. Rash continues to show up in new areas and the existing areas are not getting better. It started on her neck and then his randomly spread over most of her body. He is not having history of frequent rash. She was doing outside work prior to the start of the rash but has not been around any plant life for the last 2 weeks. She denies any change in soaps, fragrances , detergent, skin care products. She denies fever or chills. Patient has multiple drug allergies. Review of Systems Review of Systems Constitutional: Denies fever or chills [] Eyes: Denies change in visual acuity, redness, or eye pain [] HENT: Denies nasal congestion or sore throat [] Respiratory: Denies cough or shortness of breath [] Cardiovascular: No additional information not addressed in HPI [] GI: Denies abdominal pain, nausea, vomiting, bloody stools or diarrhea [] : Denies dysuria or hematuria [] Musculoskeletal: Denies back pain or joint pain [] Integument: Rash[] Neurologic: Denies headache, focal weakness or sensory changes [] Endocrine: Denies polyuria or polydipsia [] All other systems were reviewed and found to be within normal limits, except as documented in this note. Allergies Allergies Allergies Coded Allergies Type Severity Reaction Last Updated Verified Nitrofurantoin Macrocrystal Allergy Intermediate 03/05/17 Yes Sulfa (Sulfonamide Antibiotics) Allergy Intermediate 03/05/17 Yes adhesive Allergy Intermediate 03/05/17 Yes amoxicillin Allergy Intermediate Unknown 03/05/17 Yes atenolol Allergy Intermediate 03/05/17 Yes azithromycin Allergy Intermediate Hives 03/05/17 Yes ciprofloxacin Allergy Intermediate 03/05/17 Yes clavulanic acid Allergy Intermediate Unknown 03/05/17 Yes diphenhydramine Allergy Intermediate Unknown 03/05/17 Yes guaifenesin Allergy Intermediate 03/05/17 Yes nitrofurantoin Allergy Intermediate 03/05/17 Yes prednisone Allergy Intermediate Unknown 03/05/17 Yes tetanus and diphtheria toxoids Allergy Intermediate 03/05/17 Yes hydroxyzine Allergy Unknown 07/05/18 Yes triamcinolone Allergy Unknown 07/05/18 Yes Physical Exam Physical Exam Constitutional: Well developed, well nourished, no acute distress, non-toxic appearance. [] HENT: Normocephalic, atraumatic, bilateral external ears normal, oropharynx moist, no oral exudates, nose normal. [] Eyes: PERRLA, EOMI, conjunctiva normal, no discharge. [] Neck: Normal range of motion, no tenderness, supple, no stridor. [] Cardiovascular:Heart rate regular rhythm, no murmur [] Lungs & Thorax: Bilateral breath sounds clear to auscultation [] Abdomen: Bowel sounds normal, soft, no tenderness, no masses, no pulsatile masses. [] Skin: Erythematous, macular rash that coalesces several areas. This rash is on nearly every part of her body from her face to her ankles. It is erythematous. The worst areas on her neck and lower face. There is flaking of dry skin.[] Back: No tenderness, no CVA tenderness. [] Extremities: No tenderness, no cyanosis, no clubbing, ROM intact, no edema. [] Neurologic: Alert and oriented X 3, normal motor function, normal sensory function, no focal deficits noted. [] Psychologic: Affect normal, judgement normal, mood normal. [] EKG EKG [] Radiology/Procedures Radiology/Procedures [] Course & Med Decision Making Course & Med Decision Making Pertinent Labs and Imaging studies reviewed. (See chart for details) The patient's rash has a mixed look. Some of it looks like it could be fungal and is in typical fungal areas. Some of it looks like eczema. I will advise the patient to try ketoconazole shampoo and a small area see if it improves the rash. We'll also have her try Aquaphor on a separate small area to see if this helps. She will continue whichever one is effective for both necessary. She will follow up with her PCP this week and ask for dermatology referral. She is stable for discharge at this time. [] Dragon Disclaimer Dragon Disclaimer This electronic medical record was generated, in whole or in part, using a voice recognition dictation system. Departure Departure: Referrals: ALEIDA CABELLO MD (PCP) Scripts Ketoconazole (KETOCONAZOLE) 120 Ml Shampoo 1 EDWARDO TP DAILY for skin fungal infection for 3 Days, #120 ML 0 Refills Prov: KING NOBLES DO 07/05/18 KING NOBLES DO Jul 05, 2018 15:08
[2018-07-05] MEDS ORDERED: KETO120S2 TP (15:44)
== END 2018-07-05 16:30 | disposition home or self-care (01) ==
LOC: ER 14:11
DX: R21 Rash and other nonspecific skin eruption (principal); L53.8 Other specified erythematous conditions; F41.9 Anxiety disorder, unspecified; M19.90 Unspecified osteoarthritis, unspecified site; F32.9 Major depressive disorder, single episode, unspecified; E11.9 Type 2 diabetes mellitus without complications; K21.9 Gastro-esophageal reflux disease without esophagitis; I10 Essential (primary) hypertension; Z87.440 Personal history of urinary (tract) infections; Z88.8 Allergy status to other drugs, medicaments and biological substances; Z88.2 Allergy status to sulfonamides; Z88.1 Allergy status to other antibiotic agents; Z88.7 Allergy status to serum and vaccine
CPT/HCPCS: 99282

== ENCOUNTER 2018-07-23 12:20 | Inpatient (IN) | payer MEDICARE, BC ==
[~2018-07-23] VITALS: Ht 165.1 cm; Wt 51.9 kg
[~2018-07-23 12:20] MED LIST changes: +KETO120S2 TP
[2018-07-23] MEDS ORDERED: IV NORMAL SALINE 1,000ML 1,000 ML IV ONE (12:30)
[2018-07-23] MEDS ORDERED: ONDANSETRON PF 4 MG/2 ML VIAL. IV ONE (12:30)
[2018-07-23 12:52] LABS: BASO % 1 % (0-3); EOS % 0 % (0-3); HEMATOCRIT 43.8 % (36.0-47.0); HEMOGLOBIN 15.3 g/dL (12.0-15.5); LYMPH # 1.4 x10^3/uL (1.0-4.8); LYMPH % 17 % (24-48); MEAN CORPUSCULAR HEMOGLOBIN 31 pg (25-35); MEAN CORPUSCULAR HGB CONC 35 g/dL (31-37); MEAN CORPUSCULAR VOLUME 89 fL (79-100); MONO # 0.4 x10^3/uL (0.0-1.1); MONO % 5 % (0-9); NEUT # 6.5 x10^3uL (1.8-7.7); NEUT % 78 % (31-73); PLATELET COUNT 239 x10^3/uL (140-400); RED BLOOD COUNT 4.91 x10^6/uL (3.50-5.40); WHITE BLOOD COUNT 8.4 x10^3/uL (4.0-11.0)
--- NOTE | 2018-07-23 12:57 | RAD ---
EXAM: Abdomen, single view. HISTORY: Pain. COMPARISON: None. FINDINGS: A frontal view of the abdomen is obtained. There is gas within nondistended loops of bowel throughout the abdomen. There is no evidence of bowel obstruction. IMPRESSION: Nonspecific bowel gas pattern, without evidence of obstruction. Electronically signed by: Irene Bernal MD (07/23/2018 12:54 PM) [id number]
[2018-07-23 12:58] LABS: BACTERIA,URINE 0 /HPF (0-FEW); BILIRUBIN,URINE NEG (NEG); CLARITY,URINE CLEAR; COLOR,URINE STRAW; GLUCOSE,URINE NEG (NEG); NITRITE,URINE NEG (NEG); RBC,URINE 0 /HPF (0-2); SQUAMOUS EPITHELIAL CELL,UR OCC /LPF; UROBILINOGEN,URINE 0.2 mg/dL (0.2 mg/dL); WBC,URINE RARE /HPF (0-4)
[2018-07-23 13:05] LABS: ALBUMIN 4.6 g/dL (3.4-5.0); ALBUMIN/GLOBULIN RATIO 1.5 (1.0-1.7); CALCIUM 8.8 mg/dL (8.5-10.1); GFR 53.9; POTASSIUM 3.8 mmol/L (3.5-5.1); TOTAL BILIRUBIN 1.6 mg/dL (0.2-1.0); TOTAL PROTEIN 7.6 g/dL (6.4-8.2)
--- NOTE | 2018-07-23 13:09 | PHYS DOC ---
Past History Past Medical History: Anxiety, Arthritis, Depression, Diabetes, Gallstones, GERD, Hypertension, UTI Past Surgical History: No Surgical History Smoking: Non-smoker Alcohol Use: None Drug Use: None Adult General Chief Complaint Chief Complaint: NAUSEA/VOMITING/DIARRHEA HPI HPI 77-year-old female presents with nausea and vomiting for the last 8 or 9 days. Patient has had intermittent abdominal pain and discomfort in the past. She states that she has had increased nausea and epigastric cramping for several days. She has seen her PCP, but the medications they tried which was Tagamet did not help. The patient is also going on 6 weeks dealing with a rash on her face. She is scheduled to see dermatology in a few weeks. Patient states that her global cramps and decreased appetite. She knows she is not eating very much. She also believe she is drinking less than she should. She came in today because she is just tired and feels awful. She denies fever but has night chills. Review of Systems Review of Systems Constitutional: Denies fever or chills [] Eyes: Denies change in visual acuity, redness, or eye pain [] HENT: Denies nasal congestion or sore throat [] Respiratory: Denies cough or shortness of breath [] Cardiovascular: No additional information not addressed in HPI [] GI: Epigastric abdominal pain, nausea, vomiting.[] : Denies dysuria or hematuria [] Musculoskeletal: Denies back pain or joint pain [] Integument: Rash on face and neck[] Neurologic: Denies headache, focal weakness or sensory changes [] Endocrine: Denies polyuria or polydipsia [] All other systems were reviewed and found to be within normal limits, except as documented in this note. Current Medications Current Medications Current Medications Medications (Trade) Dose Ordered Sig/Kristina Start Time Stop Time Status Last Admin Dose Admin Ondansetron HCl (Zofran) 4 mg 1X ONCE 07/23/18 12:30 07/23/18 12:34 DC 07/23/18 12:48 4 MG Sodium Chloride 1,000 ml @ 1,000 mls/hr 1X ONCE 07/23/18 12:30 07/23/18 13:29 07/23/18 12:48 1,000 MLS/HR Allergies Allergies Allergies Coded Allergies Type Severity Reaction Last Updated Verified Nitrofurantoin Macrocrystal Allergy Intermediate 03/05/17 Yes Sulfa (Sulfonamide Antibiotics) Allergy Intermediate 03/05/17 Yes adhesive Allergy Intermediate 03/05/17 Yes amoxicillin Allergy Intermediate Unknown 03/05/17 Yes atenolol Allergy Intermediate 03/05/17 Yes azithromycin Allergy Intermediate Hives 03/05/17 Yes ciprofloxacin Allergy Intermediate 03/05/17 Yes clavulanic acid Allergy Intermediate Unknown 03/05/17 Yes diphenhydramine Allergy Intermediate Unknown 03/05/17 Yes guaifenesin Allergy Intermediate 03/05/17 Yes nitrofurantoin Allergy Intermediate 03/05/17 Yes prednisone Allergy Intermediate Unknown 03/05/17 Yes tetanus and diphtheria toxoids Allergy Intermediate 03/05/17 Yes hydroxyzine Allergy Unknown 07/05/18 Yes triamcinolone Allergy Unknown 07/05/18 Yes Physical Exam Physical Exam Constitutional: Well developed, well nourished, no acute distress, non-toxic appearance. [] HENT: Normocephalic, atraumatic, bilateral external ears normal, oropharynx moist, no oral exudates, nose normal. [] Eyes: PERRLA, EOMI, conjunctiva normal, no discharge. [] Neck: Normal range of motion, no tenderness, supple, no stridor. [] Cardiovascular:Heart rate regular rhythm, no murmur [] Lungs & Thorax: Bilateral breath sounds clear to auscultation [] Abdomen: Mild tenderness in the epigastric area[] Skin: Erythematous macules, some with central scaling on her face and neck.[] Back: No tenderness, no CVA tenderness. [] Extremities: No tenderness, no cyanosis, no clubbing, ROM intact, no edema. [] Neurologic: Alert and oriented X 3, normal motor function, normal sensory function, no focal deficits noted. [] Psychologic: Affect anxious, judgement normal, mood normal. [] Current Patient Data Vital Signs Vital Signs Date Time Temp Pulse Resp B/P (MAP) Pulse Ox O2 Delivery O2 Flow Rate FiO2 07/23/18 12:35 97.9 68 18 99 Room Air Lab Results Laboratory Tests Test 07/23/18 12:33 White Blood Count 8.4 x10^3/uL (4.0-11.0) Red Blood Count 4.91 x10^6/uL (3.50-5.40) Hemoglobin 15.3 g/dL (12.0-15.5) Hematocrit 43.8 % (36.0-47.0) Mean Corpuscular Volume 89 fL (79-100) Mean Corpuscular Hemoglobin 31 pg (25-35) Mean Corpuscular Hemoglobin Concent 35 g/dL (31-37) Red Cell Distribution Width 13.0 % (11.5-14.5) Platelet Count 239 x10^3/uL (140-400) Neutrophils (%) (Auto) 78 % (31-73) H Lymphocytes (%) (Auto) 17 % (24-48) L Monocytes (%) (Auto) 5 % (0-9) Eosinophils (%) (Auto) 0 % (0-3) Basophils (%) (Auto) 1 % (0-3) Neutrophils # (Auto) 6.5 x10^3uL (1.8-7.7) Lymphocytes # (Auto) 1.4 x10^3/uL (1.0-4.8) Monocytes # (Auto) 0.4 x10^3/uL (0.0-1.1) Eosinophils # (Auto) 0.0 x10^3/uL (0.0-0.7) Basophils # (Auto) 0.0 x10^3/uL (0.0-0.2) Urine Collection Type Unknown Urine Color Straw Urine Clarity Clear Urine pH 5.5 Urine Specific [place] <=1.005 Urine Protein Neg (NEG-TRACE) Urine Glucose (UA) Neg mg/dL (NEG) Urine Ketones (Stick) Neg mg/dL (NEG) Urine Blood Neg (NEG) Urine Nitrite Neg (NEG) Urine Bilirubin Neg (NEG) Urine Urobilinogen Dipstick 0.2 mg/dL (0.2 mg/dL) Urine Leukocyte Esterase Trace (NEG) Urine RBC 0 /HPF (0-2) Urine WBC Rare /HPF (0-4) Urine Squamous Epithelial Cells Occ /LPF Urine Transitional Epithelial Cells Occ /LPF Urine Bacteria 0 /HPF (0-FEW) EKG EKG [] Radiology/Procedures Radiology/Procedures [] Impressions: EXAM: Abdomen, single view. HISTORY: Pain. COMPARISON: None. FINDINGS: A frontal view of the abdomen is obtained. There is gas within nondistended loops of bowel throughout the abdomen. There is no evidence of bowel obstruction. IMPRESSION: Nonspecific bowel gas pattern, without evidence of obstruction. Electronically signed by: Irene Toure MD (07/23/2018 12:54 PM) [id number] DICTATED AND SIGNED BY: IRENE TOURE MD DATE: 07/23/18 1253 CC: KING NOBLES DO; ALEIDA CABELLO MD Course & Med Decision Making Course & Med Decision Making Pertinent Labs and Imaging studies reviewed. (See chart for details) The patient's labs are unremarkable. Her urine is unremarkable. KUB shows diffuse erythema throughout the abdomen without signs of obstruction. The patient was given 4 mg of Zofran IV. The patient had another episode of being shaky and her palms and feet were diaphoretic. I gave her 1 mg of Ativan as it appeared to be anxiety related. This did seem to help quite a bit. The patient is still having this intermittent abdominal cramping. Her x-ray suggestive of ileus but no obstruction. I discussed the case with Dr. Garcia and he has accepted the patient for admission. [] Dragon Disclaimer Dragon Disclaimer This electronic medical record was generated, in whole or in part, using a voice recognition dictation system. Departure Departure: Referrals: ALEIDA CABELLO MD (PCP) KING NOBLES DO Jul 23, 2018 13:09
[2018-07-23] MEDS ORDERED: LORazepam 2 MG/ML VIAL IV ONE (14:15)
[2018-07-23] MEDS ORDERED: ONDANSETRON PF 4 MG/2 ML VIAL. IV PRN (16:00)
[2018-07-23 17:05] VITALS: BP 136/70
[2018-07-23 19:30] VITALS: BP 111/61
[2018-07-23] MEDS: METOPROLOL SUCC 24HR ER 25 MG TAB.ER.24H. PO SCH (21:33)
[2018-07-23 23:00] VITALS: BP 127/68
[2018-07-24 06:09] VITALS: BP 145/67
[2018-07-24] MEDS: METOPROLOL SUCC 24HR ER 25 MG TAB.ER.24H. PO SCH (08:20)
[2018-07-24 11:14] VITALS: BP 124/66
[2018-07-24 15:18] LABS: BASO # 0.1 x10^3/uL (0.0-0.2); BASO % 1 % (0-3); EOS # 0.1 x10^3/uL (0.0-0.7); EOS % 1 % (0-3); HEMATOCRIT 43.8 % (36.0-47.0); HEMOGLOBIN 15.1 g/dL (12.0-15.5); LYMPH % 27 % (24-48); MEAN CORPUSCULAR HEMOGLOBIN 31 pg (25-35); MEAN CORPUSCULAR HGB CONC 34 g/dL (31-37); MEAN CORPUSCULAR VOLUME 91 fL (79-100); MONO # 0.4 x10^3/uL (0.0-1.1); MONO % 5 % (0-9); NEUT # 5.1 x10^3uL (1.8-7.7); NEUT % 66 % (31-73); PLATELET COUNT 232 x10^3/uL (140-400); RED BLOOD COUNT 4.84 x10^6/uL (3.50-5.40); WHITE BLOOD COUNT 7.7 x10^3/uL (4.0-11.0)
[2018-07-24 15:24] LABS: ALBUMIN 4.1 g/dL (3.4-5.0); ALBUMIN/GLOBULIN RATIO 1.3 (1.0-1.7); CALCIUM 8.6 mg/dL (8.5-10.1); GFR 53.9; POTASSIUM 3.9 mmol/L (3.5-5.1); TOTAL BILIRUBIN 0.6 mg/dL (0.2-1.0); TOTAL PROTEIN 7.2 g/dL (6.4-8.2)
--- NOTE | 2018-07-24 15:36 | HP ---
ADMIT DATE: 07/23/2018 HISTORY OF PRESENT ILLNESS: The patient is a 77-year-old female patient, who apparently came to the Emergency Room complaining of nausea, vomiting, diarrhea and abdominal pain. She stated that she presented with nausea and vomiting for the last 8-9 days. She has also intermittent abdominal pain and discomfort in the past. She stated that she has had increased nausea and epigastric cramping for several days. She has seen her primary care physician and was put on Tagamet, but it did not help. The patient is also going on for 6 weeks dealing with a rash on her face. She is scheduled to see a anchor tacker in 3 weeks' time, but states that she has global abdominal cramps and decreased appetite. She knows that she is not eating very well. She believes also she is drinking less than she should. She came in today because she is tired and feels awful. Denies any fever, but did complain of some chills. 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 She has this pruritic skin rash in her face and neck and anterior chest wall that is scaly although she does not have any rash on the classic places for psoriasis including the elbows, knees and line of hair. Unfortunately, she is practically allergic to everything that we use for treatment of allergic disease including Benadryl, prednisone or steroids, triamcinolone hydroxyzine. She was evaluated in the Emergency Room and basically has had lab work, which was basically unremarkable. In fact, her eosinophil number is normal. Her chemistry showed that she is actually well hydrated. Her bilirubin slightly elevated, but her other liver enzymes are normal. She did have KUB, which was basically unremarkable. There is gas within the nondistended loops of bowel throughout the abdomen. There is no evidence of any bowel obstruction. She was basically admitted for intermittent abdominal pain. PAST MEDICAL HISTORY: Significant for hypertension. She has not had any significant other medical problems. PAST SURGICAL HISTORY: Significant for cervical polyp removal. ALLERGIES: SHE IS ALLERGIC TO NITROFURANTOIN MACROCRYSTAL, SULFA DRUGS, ADHESIVES, AMOXICILLIN, ATENOLOL, AZITHROMYCIN, CIPROFLOXACIN, CLAVULANIC ACID. SHE IS ALSO ALLERGIC TO STEROIDS GENERALLY, PREDNISONE, TRIAMCINOLONE CREAM, TETANUS TOXOIDS, HYDROXYZINE. FAMILY HISTORY: She has one brother who has killed when she was young. Both parents are . SOCIAL HISTORY: She is single, never , has no children. She never smoked, does not drink alcohol or recreational drugs. 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 She retired when she was 56 years old and took care of her parents who are . She lives alone now in her farm. MEDICATIONS: She is currently on following medications: She is on metoprolol succinate 25 mg [id number] twice a day. REVIEW OF SYSTEMS: The patient denied any blurring of vision, cataract, glaucoma or macular degeneration. Denied any earache, tinnitus or sensorineural deafness. Denied any nosebleeds, stuffy nose or postnasal drip. Denied any sore throat, sore tongue, toothache, hoarseness of voice or difficulty swallowing. Did complain of nausea, vomiting as well as diarrhea, but denied any hematemesis, melena or hematochezia. Denied any dysuria, frequency or hematuria. Denied any chest pain, shortness of breath, orthopnea, paroxysmal nocturnal dyspnea. Denied any cough, phlegm or hemoptysis. Denied any dizziness, lightheadedness, or vertigo. She did have an upper GI endoscopy as well as colonoscopy, does not know exactly when, but they were both unremarkable. PHYSICAL EXAMINATION: GENERAL: When I examined her on arrival to the Emergency Room, she looked somewhat pale, but no jaundice, cyanosis, or thyromegaly. No jugular venous distension. No limb edema. VITAL SIGNS: Her heart rate was 71, blood pressure was 165/81, temperature was 97.6, respiratory rate was 18 and oxygen saturation was 98%. HEAD, EYES, EARS, NOSE AND THROAT: Showed normocephalic, atraumatic. NECK: Supple. HEART: Showed normal first and second sounds. No gallop, rub or murmur. CHEST: Clear to auscultation. No crepitation or rhonchi. ABDOMEN: Slight Scaphoid, soft, nontender. NEUROLOGIC: She is awake, alert, responding appropriately. All cranial nerves are intact. EXTREMITIES: She moves extremities without difficulty. She ambulates without assistance or assistive devices. LABORATORY DATA: Her lab work on admission showed a serum sodium 130, potassium 3.8, chloride 95, bicarbonate 23, anion gap of 12, BUN 15, creatinine 1, estimated GFR was 54 mL per minute. Her glucose was 110. Calcium was 8.8. Total bilirubin was 1.6. AST, ALT, alkaline phosphatase were normal. Her total protein was 7.6, albumin was 4.6. Her serum lipase was 363. Her white cell count was 8400, hemoglobin 15, hematocrit 44, MCV 89 and platelet count 239,000 with normal manual differential. Her urinalysis was unremarkable. The urine was clear with a pH of 5.5, specific gravity 1.005. The urine was negative for protein, glucose, ketones, blood, nitrite and leukocyte esterase. There were 0 rbc's, rare wbc's, and no bacteria. X-ray of the abdomen showed that there is gas within nondistended loops of bowel throughout the abdomen. There is no evidence of bowel obstruction. ASSESSMENT AND PLAN: The patient was admitted for further observation. Unfortunately, with this list of allergies it is difficult to know what to treat her with. The patient basically very obsessed with the idea that she might have Clostridium difficile colitis, although the last antibiotic she received was in December of this year. She lives on her own. She does not live chente a long term or a retirement. The stool was sent for C. diff toxins this morning and we will await the result and decide the further management accordingly. SEA TYSON MD DR: NAY/uli JOB#: [id number] / [id number]
[2018-07-24 16:32] VITALS: BP 135/74
== END 2018-07-24 18:51 | disposition home or self-care (01) | DRG 372 ==
LOC: ER 12:20 → 1 SOUTH 16:15
PROVIDERS: ADMIT Internal Medicine; ATTEND Internal Medicine
DX: A04.72 Enterocolitis due to Clostridium difficile, not specified as recurrent (principal); E87.1 Hypo-osmolality and hyponatremia; E11.9 Type 2 diabetes mellitus without complications; I10 Essential (primary) hypertension; K21.9 Gastro-esophageal reflux disease without esophagitis; L29.9 Pruritus, unspecified; F32.9 Major depressive disorder, single episode, unspecified; F41.9 Anxiety disorder, unspecified; M19.90 Unspecified osteoarthritis, unspecified site; Z87.440 Personal history of urinary (tract) infections; Z88.6 Allergy status to analgesic agent; Z88.1 Allergy status to other antibiotic agents; Z88.2 Allergy status to sulfonamides; Z88.7 Allergy status to serum and vaccine; Z88.8 Allergy status to other drugs, medicaments and biological substances; Z91.048 Other nonmedicinal substance allergy status; Z79.899 Other long term (current) drug therapy
CPT/HCPCS: 36415; 74018; 80053; 81001; 83605; 83615; 83690; 85025; 87086; 87493; 96361; 96374; 96375; J2060; J2405; 99285-25; J7030

== ENCOUNTER → 2018-08-04 | Outpatient (CLI) | payer MEDICARE, BC ==
[2018-07-24 16:32] VITALS: BP 135/74
--- NOTE | 2018-08-04 16:04 | RAD ---
Complete abdomen ultrasound study Clinical indications: Abdominal pain. FINDINGS: The gallbladder is small and contracted without gallstones. No focal enlargement of pancreas is seen. No focal aneurysmal dilatation of the abdominal aorta is seen. The intrahepatic portion of the IVC is unremarkable. The liver measures 13.1 cm in length. No focal hepatic mass is seen. The extrahepatic bile duct measures 2 mm in caliber which is normal. The length of the right kidney is 9.0 cm and the length of the left kidney is 9.0 cm. No hydronephrosis or renal mass or perinephric fluid collection is seen on either side. The spleen is not enlarged measuring 8.9 cm. No ascites is seen. IMPRESSION: Small contracted gallbladder without gallstones. Electronically signed by: Quinton Ling MD (08/04/2018 4:00 PM) [facility]
== END | disposition home or self-care (01) ==
LOC: US 09:05
PROVIDERS: ATTEND Specialist
DX: K82.0 Obstruction of gallbladder (principal)
CPT/HCPCS: 76700

== ENCOUNTER 2018-08-07 20:05 | Inpatient (IN) | payer MEDICARE, BC ==
[~2018-08-07] VITALS: Ht 165.1 cm; Wt 49.6 kg
[2018-08-07] MEDS ORDERED: IV RINGERS SOLUTION,LACTATED 1,000 ML IV SCH (20:30)
--- NOTE | 2018-08-07 20:30 | ED.ADGEN ---
Past History Past Medical History: Anxiety, Arthritis, Depression, Diabetes, Gallstones, GERD, Hypertension, UTI Past Surgical History: No Surgical History Smoking: Non-smoker Alcohol Use: None Drug Use: None Adult General Chief Complaint Chief Complaint ".. I nauseated.. and I just don't feel well.. .. I trying to drink water.. I am allergic to everything... I got into some poison Tiny .. month ago... and all the meds they give me make me worse.. Dr. Bear.. gave me on omeprazole but I think I'm allergic to it.... " HPI HPI Patient is a 77 year old female who presents with above hx of allergic reaction to omeprazole. She states she's allergic to almost all drugs. Patient complaining of generalized abdomen pain. Patient denies any intake bad food. Patient denies any travel. Patient denies any specific ill contacts. Denies any intake of bad food. Patient states her abdomen pain has gotten worse with the omeprazole and has only taken it 2 days. Patient also complaining of sore throat, and feels like she is vomiting into her throat. Patient also complaining of dysuria. Patient reports chronic diarrhea. Patient only reports poor intake the last week. Patient does give a history of past C. difficile colitis. Patient advised she cannot take steroids or Benadryl . Patient gives a history of recent contact dermatitis secondary to poison tiny which she could not tolerate any of the treatments for it. Patient normally follows with Dr. Bear. Review of Systems Review of Systems Constitutional: Denies fever or chills [] Eyes: Denies change in visual acuity, redness, or eye pain [] HENT: Denies nasal congestion or sore throat [] Respiratory: Denies cough or shortness of breath [] Cardiovascular: No additional information not addressed in HPI [] GI: Complaints of abdominal pain, nausea, and chronic diarrhea [] : Complaints of dysuria Musculoskeletal: Denies back pain or joint pain [] Integument: Complaints of contact dermatitis due to poison tiny Neurologic: Denies headache, focal weakness or sensory changes [] Endocrine: Denies polyuria or polydipsia [] All other systems were reviewed and found to be within normal limits, except as documented in this note. Family History Family History Non- contributory Current Medications Current Medications Current Medications Medications (Trade) Dose Ordered Sig/Kristina Start Time Stop Time Status Last Admin Dose Admin Acetaminophen (Tylenol) 500 mg 1X ONCE 08/07/18 21:00 08/07/18 21:01 DC 08/07/18 20:59 500 MG Lactated Ringer's 1,000 ml @ 1,000 mls/hr Q1H 08/07/18 20:30 08/07/18 21:29 DC 08/07/18 20:59 1,000 MLS/HR Allergies Allergies Allergies Coded Allergies Type Severity Reaction Last Updated Verified Nitrofurantoin Macrocrystal Allergy Intermediate 03/05/17 Yes Sulfa (Sulfonamide Antibiotics) Allergy Intermediate 03/05/17 Yes adhesive Allergy Intermediate 03/05/17 Yes amoxicillin Allergy Intermediate Unknown 03/05/17 Yes atenolol Allergy Intermediate 03/05/17 Yes azithromycin Allergy Intermediate Hives 03/05/17 Yes ciprofloxacin Allergy Intermediate 03/05/17 Yes clavulanic acid Allergy Intermediate Unknown 03/05/17 Yes diphenhydramine Allergy Intermediate Unknown 03/05/17 Yes guaifenesin Allergy Intermediate 03/05/17 Yes nitrofurantoin Allergy Intermediate 03/05/17 Yes prednisone Allergy Intermediate Unknown 03/05/17 Yes tetanus and diphtheria toxoids Allergy Intermediate 03/05/17 Yes hydroxyzine Allergy Unknown 07/05/18 Yes triamcinolone Allergy Unknown 07/05/18 Yes Physical Exam Physical Exam Constitutional: Moderately acute distress, non-toxic appearance. [] HENT: Normocephalic, atraumatic, bilateral external ears normal, oropharynx dry , no oral exudates, nose normal. [] Eyes: PERRLA, EOMI, conjunctiva normal, no discharge. [] Neck: Normal range of motion, no tenderness, supple, no stridor. [] Cardiovascular. Bradycardia Heart rate regular rhythm, no murmur [] Lungs & Thorax: Bilateral breath sounds clear to auscultation [] Abdomen: Bowel sounds hyperactive, soft, no tenderness, no masses, no pulsatile masses. [] Skin: Warm, dry, no erythema, no rash. Poor turgor Back: No tenderness, no CVA tenderness. [] Extremities: No tenderness, no cyanosis, no clubbing, ROM intact, no edema. [] Arthritic changes. Neurologic: Alert and oriented X 3, normal motor function, normal sensory function, no focal deficits noted. [] Psychologic: Affect is extremely anxious, judgement normal, mood normal. [] Current Patient Data Vital Signs Vital Signs Date Time Temp Pulse Resp B/P (MAP) Pulse Ox O2 Delivery O2 Flow Rate FiO2 08/07/18 22:43 69 18 160/74 (102) 98 Room Air 08/07/18 20:05 97.6 Lab Results Laboratory Tests Test 08/07/18 20:13 White Blood Count 6.7 x10^3/uL (4.0-11.0) Red Blood Count 4.55 x10^6/uL (3.50-5.40) Hemoglobin 14.2 g/dL (12.0-15.5) Hematocrit 40.3 % (36.0-47.0) Mean Corpuscular Volume 89 fL (79-100) Mean Corpuscular Hemoglobin 31 pg (25-35) Mean Corpuscular Hemoglobin Concent 35 g/dL (31-37) Red Cell Distribution Width 13.1 % (11.5-14.5) Platelet Count 216 x10^3/uL (140-400) Neutrophils (%) (Auto) 58 % (31-73) Lymphocytes (%) (Auto) 35 % (24-48) Monocytes (%) (Auto) 5 % (0-9) Eosinophils (%) (Auto) 1 % (0-3) Basophils (%) (Auto) 1 % (0-3) Neutrophils # (Auto) 3.9 x10^3uL (1.8-7.7) Lymphocytes # (Auto) 2.3 x10^3/uL (1.0-4.8) Monocytes # (Auto) 0.3 x10^3/uL (0.0-1.1) Eosinophils # (Auto) 0.1 x10^3/uL (0.0-0.7) Basophils # (Auto) 0.1 x10^3/uL (0.0-0.2) Prothrombin Time 12.2 SEC (9.4-11.4) H Prothrombin Time INR 1.2 (0.9-1.1) H PTT 23 SEC (23-33) D-Dimer (Brunilda) < 0.19 mg/L (0.00-0.50) Urine Collection Type Unknown Urine Color Colorless Urine Clarity Clear Urine pH 6.0 Urine Specific [place] <=1.005 Urine Protein Neg (NEG-TRACE) Urine Glucose (UA) Neg mg/dL (NEG) Urine Ketones (Stick) Neg mg/dL (NEG) Urine Blood Trace (NEG) Urine Nitrite Neg (NEG) Urine Bilirubin Neg (NEG) Urine Urobilinogen Dipstick 0.2 mg/dL (0.2 mg/dL) Urine Leukocyte Esterase Large (NEG) Urine RBC 3-5 /HPF (0-2) Urine WBC 5-10 /HPF (0-4) Urine Squamous Epithelial Cells Few /LPF Urine Transitional Epithelial Cells Few /LPF Urine Bacteria 0 /HPF (0-FEW) Sodium Level 129 mmol/L (136-145) L Potassium Level 3.9 mmol/L (3.5-5.1) Chloride Level 95 mmol/L (98-107) L Carbon Dioxide Level 19 mmol/L (21-32) L Anion Gap 15 (6-14) H Blood Urea Nitrogen 11 mg/dL (7-20) Creatinine 1.1 mg/dL (0.6-1.0) H Estimated GFR (Cockcroft-Gault) 48.3 Glucose Level 96 mg/dL (70-99) Calcium Level 8.9 mg/dL (8.5-10.1) Magnesium Level 2.0 mg/dL (1.8-2.4) Total Bilirubin 1.6 mg/dL (0.2-1.0) H Direct Bilirubin 0.3 mg/dL (0.0-0.2) H Aspartate Amino Transferase (AST) 23 U/L (15-37) Alanine Aminotransferase (ALT) 18 U/L (14-59) Alkaline Phosphatase 59 U/L (46-116) Creatine Kinase 141 U/L (26-192) Troponin I Quantitative < 0.017 ng/mL (0-0.055) HQ-Bnl-Y-Type Natriuretic Peptide 275 pg/mL (0-449) Total Protein 6.8 g/dL (6.4-8.2) Albumin 4.3 g/dL (3.4-5.0) Lipase 306 U/L (73-393) EKG EKG My interpretation EKG shows a sinus bradycardia 50 bpm. Some nonspecific T-wave changes in inferior leads. But no findings acute STEMI with contralateral changes.[] Radiology/Procedures Radiology/Procedures My interpretation of abdomen film shows no free air under the diaphragm. No acute cardiopulmonary findings. Normal cardiac silhouette.[] Degenerative joint changes. Nonobstructive bowel gas pattern. There is some stool in the distal colon. Arthritic changes. Course & Med Decision Making Course & Med Decision Making Pertinent Labs and Imaging studies reviewed. (See chart for details) Discussed presentation, testing and tx. plan with Dr. Garcia- Will admit for hydration and treatment of UTI. Will collect stool for further evaluation C. difficile and [] Final Impression Final Impression 1. Abd. Pain 2. Nausea 3. Contact Dermatitis- Hx. Rash to Poison Tiny 4. Hyponatremia 129 5. UTI 6. Multiple Allergies 7. Anxiety [] Dragon Disclaimer Dragon Disclaimer This electronic medical record was generated, in whole or in part, using a voice recognition dictation system. NEIDA CASAREZ MD Aug 07, 2018 20:30
[2018-08-07 20:55] LABS: BASO # 0.1 x10^3/uL (0.0-0.2); BASO % 1 % (0-3); EOS # 0.1 x10^3/uL (0.0-0.7); EOS % 1 % (0-3); HEMATOCRIT 40.3 % (36.0-47.0); HEMOGLOBIN 14.2 g/dL (12.0-15.5); LYMPH # 2.3 x10^3/uL (1.0-4.8); LYMPH % 35 % (24-48); MEAN CORPUSCULAR HEMOGLOBIN 31 pg (25-35); MEAN CORPUSCULAR HGB CONC 35 g/dL (31-37); MEAN CORPUSCULAR VOLUME 89 fL (79-100); MONO # 0.3 x10^3/uL (0.0-1.1); MONO % 5 % (0-9); NEUT # 3.9 x10^3uL (1.8-7.7); NEUT % 58 % (31-73); PLATELET COUNT 216 x10^3/uL (140-400); RED BLOOD COUNT 4.55 x10^6/uL (3.50-5.40); RED CELL DISTRIBUTION WIDTH 13.1 % (11.5-14.5); WHITE BLOOD COUNT 6.7 x10^3/uL (4.0-11.0)
[2018-08-07] MEDS ORDERED: ACETAMINOPHEN 500 MG TABLET PO ONE (21:00)
[2018-08-07 21:15] LABS: ALBUMIN 4.3 g/dL (3.4-5.0); CALCIUM 8.9 mg/dL (8.5-10.1); CREATININE 1.1 mg/dL (0.6-1.0); DIRECT BILIRUBIN 0.3 mg/dL (0.0-0.2); GFR 48.3; POTASSIUM 3.9 mmol/L (3.5-5.1); TOTAL BILIRUBIN 1.6 mg/dL (0.2-1.0); TOTAL PROTEIN 6.8 g/dL (6.4-8.2)
[2018-08-07 21:26] LABS: BACTERIA,URINE 0 /HPF (0-FEW); BILIRUBIN,URINE NEG (NEG); CLARITY,URINE CLEAR; COLOR,URINE COLORLESS; GLUCOSE,URINE NEG (NEG); NITRITE,URINE NEG (NEG); SQUAMOUS EPITHELIAL CELL,UR FEW /LPF; UROBILINOGEN,URINE 0.2 mg/dL (0.2 mg/dL)
[2018-08-07] MEDS ORDERED: ONDANSETRON PF 4 MG/2 ML VIAL. IV PRN (23:45)
[2018-08-07] MEDS ORDERED: SUCRALFATE 1 GM TABLET. PO ONE (23:45)
[2018-08-07] MEDS ORDERED: IOHEXOL 300 MG/ML 75 ML VIAL. IV ONE (23:55)
[2018-08-07] MEDS ORDERED: CONTRAST GIVEN MC PRN (23:55)
[2018-08-07] MEDS ORDERED: IOHEXOL 240 MG/ML 50ML VIAL. PO ONE (23:55)
[2018-08-07] MEDS ORDERED: cefTRIAXone IV Push 1 GM VIAL. IVP ONE (23:55)
--- NOTE | 2018-08-07 23:57 | RAD ---
Examination: CHEST PA LATERAL History: Abdomen pain, nausea Comparison/Correlation: None available at this time Findings: PA and lateral views of chest were obtained. Heart size and pulmonary vasculature are normal. No infiltrate or pleural effusion. No pneumothorax. Mild levoconvex cervicothoracic and upper lumbar spine noted. No subdiaphragmatic extraluminal gas. Impression: No infiltrate. Electronically signed by: Jah Lazo MD (08/07/2018 11:53 PM) [facility] [id number]
--- NOTE | 2018-08-07 23:58 | RAD ---
Examination: ABDOMEN SUPINE UPRIGHT History: Abdomen pain, nausea Comparison/Correlation: None available at this time. Findings: Supine and upright views of the abdomen were obtained. Visualized lung bases are clear. Fluid levels within nondistended bowel. Gas is present within nondistended colon and small bowel. No extraluminal gas. No suspicious abdominal calcifications. No bowel obstruction. Mild levo convexity of the thoracal lumbar spine. Impression: No obstruction. Fluid levels in bowel may represent gastroenteritis. Electronically signed by: Jah Lazo MD (08/07/2018 11:55 PM) [facility]
[2018-08-08 02:09] VITALS: BP 164/77
--- NOTE | 2018-08-08 02:12 | RAD ---
Examination: CT ABD PELV W/ORAL IV CONTRAST History: Omni 300 60cc: Abdomen pain, weakness, nausea today Comparison/Correlation: None Findings: Axial images of the abdomen and pelvis were obtained following 60 cc Omnipaque 300 IV. Oral contrast was administered. Sagittal and coronal reformatted images were provided. Minimal linear discoid atelectasis involves the lingula. Liver, spleen, pancreas, and right adrenal gland are normal. Left adrenal gland nodule measuring up to 2 cm x 1.4 cm is present in bowel demarcated. Hounsfield units on postcontrast imaging of 48 noted. Right extrarenal pelvis is present. Distention of the proximal right ureter is present. No radiopaque collecting system calculus. Distal right ureter is unremarkable. Small left extrarenal pelvis is present. Urinary bladder is unremarkable. There is no bowel obstruction. Moderate quantity of stool in the cecum is present. No inflammatory changes identified about the cecum. Appendix is unremarkable. No ascites or pelvic free fluid. No enlarged abdominal or pelvic lymph nodes. No extraluminal gas. Severe degenerative disc space narrowing from L3 to L5 is present. Moderate degenerative disc disease otherwise also seen. Impression: No acute inflammatory process or obstruction. Left adrenal gland nodule is present. Correlate with prior exams if available to assess stability. No aggressive features. Consider interval follow-up CT without contrast in 8 months to assess stability if stability is unknown. Electronically signed by: Jah Lazo MD (08/08/2018 2:09 AM) [facility]
[2018-08-08 06:03] VITALS: BP 123/75
[2018-08-08 06:24] LABS: BASO % 1 % (0-3); EOS # 0.1 x10^3/uL (0.0-0.7); EOS % 2 % (0-3); HEMATOCRIT 38.4 % (36.0-47.0); HEMOGLOBIN 13.5 g/dL (12.0-15.5); LYMPH # 1.8 x10^3/uL (1.0-4.8); LYMPH % 39 % (24-48); MEAN CORPUSCULAR HEMOGLOBIN 31 pg (25-35); MEAN CORPUSCULAR HGB CONC 35 g/dL (31-37); MEAN CORPUSCULAR VOLUME 89 fL (79-100); MONO # 0.3 x10^3/uL (0.0-1.1); MONO % 7 % (0-9); NEUT # 2.3 x10^3uL (1.8-7.7); NEUT % 52 % (31-73); PLATELET COUNT 181 x10^3/uL (140-400); RED BLOOD COUNT 4.33 x10^6/uL (3.50-5.40); RED CELL DISTRIBUTION WIDTH 12.7 % (11.5-14.5); WHITE BLOOD COUNT 4.5 x10^3/uL (4.0-11.0)
[2018-08-08 06:27] LABS: CALCIUM 8.5 mg/dL (8.5-10.1); CREATININE 1.1 mg/dL (0.6-1.0); GFR 48.3; POTASSIUM 4.3 mmol/L (3.5-5.1)
[2018-08-08] MEDS: SUCRALFATE 1 GM TABLET. PO SCH ×4 (08:09→21:37)
[2018-08-08] MEDS ORDERED: IV NORMAL SALINE 1,000ML 1,000 ML IV SCH (09:00)
[2018-08-08] MEDS: METOPROLOL SUCC 24HR ER 25 MG TAB.ER.24H. PO SCH ×2 (09:04→21:37)
[2018-08-08 10:53] VITALS: BP 122/67
--- NOTE | 2018-08-08 14:59 | HP ---
ADMIT DATE: 08/08/2018 HISTORY OF PRESENT ILLNESS: The patient is a 77-year-old female patient, who came to the Emergency Room with a multitude of complaints including nausea, abdominal pain, abdominal floating, allergies. She was here actually few weeks ago complaining of diarrhea, was insisting to check her stool for C. diff that was eventually came back negative and she also complained of constipation. She has not had bowel movement for almost 4 days and she did have 1 bowel movement this morning. She stated that she has tolerated her food, which is made of yellow and Sprite this afternoon and would like to be able to eat real food before she wants to go home. PAST MEDICAL HISTORY: Significant for hypertension for which she apparently is on metoprolol and started by Dr. Win. Better than that she has no other significant medical problem. She has had upper and lower GI endoscopy before that were unremarkable. PAST SURGICAL HISTORY: Significant for cervical polyp removed. ALLERGIES: She has an extensive list of allergies including NITROFURANTOIN, MACROCRYSTAL, SULFA DRUGS, ADHESIVES, AMOXICILLIN, ATENOLOL, AZITHROMYCIN, CIPROFLOXACIN, CLAVULANIC ACID. She is also allergic to STEROIDS, generally PREDNISONE, TRIAMCINOLONE CREAM, TETANUS TOXOID and HYDROXYZINE. MEDICATIONS: She is currently on following medications: She is on metoprolol succinate 25 mg half a tablet twice a day. FAMILY HISTORY: She had 1 brother, who was killed when he was young. Both parents are . SOCIAL HISTORY: She is single, never , has no children. She never smoked, does not drink alcohol or use recreational drugs. 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 She retired when she was 56 years old and took care of her parents until they . She lives alone and now in her farm. REVIEW OF SYSTEMS: As per history of present illness. PHYSICAL EXAMINATION: GENERAL: On examining her, the patient looked well and was clearly in no apparent respiratory distress. No pallor, jaundice, cyanosis, or thyromegaly. No jugular venous distension. No lower limb edema. VITAL SIGNS: Her heart rate on arrival was 65, blood pressure 157/72, temperature was 98, respiratory rate was 18 and oxygen saturation was 100% on room air. HEAD, EYES, EARS, NOSE, AND THROAT: Showed normocephalic, atraumatic. NECK: Supple. HEART: Showed normal first and second heart sounds with no gallop, rub, or murmur. CHEST: Clear to auscultation. No crepitation or rhonchi. ABDOMEN: Distended, soft, nontender. No guarding or rigidity. No organomegaly. All hernial orifices intact. Bowel sounds normal. NEUROLOGIC: She was awake, alert, responding appropriately. All cranial nerves intact. EXTREMITIES: She moves extremities without difficulty. She ambulates without assistance or assistive devices. LABORATORY DATA: On arrival showed her white cell count to be 6700, hemoglobin 14, hematocrit 40, MCV 89 and platelet count 216,000. Her chemistry showed serum sodium of 129, potassium 3.9, chloride 95, bicarbonate 19, anion gap of 15, BUN 11, creatinine 1.1, estimated GFR was 48 mL per minute. Her glucose was 96, calcium was 8.9, magnesium 2. Total bilirubin was 1.6. AST, ALT, alkaline phosphatase were normal. Her CK was 141, beta natriuretic peptide was 275. Total protein was 6.8, albumin was 4.3 and serum lipase was 306. TSH was normal at 2.854. Her prothrombin time was 12.2, INR 1.2, APTT was 23 and D-dimer was less than 0.19. Urinalysis showed the urine was straw colored, clear with a pH of 5.5, specific gravity is 1.005. The urine was negative for protein, glucose, ketones, blood, nitrite and there was trace of leukocyte esterase. There was no rbc's, very rare wbc's. There is large amount of leukocyte esterase, 3-5 rbc's, and 5-10 wbc's, and no bacteria. While in the Emergency Room also she has had a chest x-ray, which showed that the heart size and pulmonary vasculature were normal. No infiltrate or pleural effusion, no pneumothorax, mild levoconvexity thoracic and upper lumbar spine noted. No subdiaphragmatic extraluminal gas. Her abdominal x-ray, supine and erect showed that the visualized lung bases are clear, fluid levels within nondistended bowel, gas is present within the nondistended colon and small bowel. No extraluminal gas. No suspicious abdominal calcification. No bowel obstruction, mild levoconvexity of the thoracolumbar spine. She does have a CT scan of the abdomen and pelvis with IV contrast, which basically showed that the liver, spleen, pancreas and right adrenal gland are normal. Left adrenal gland nodule measuring up to 2 cm x 1.4 cm present. Her right extrarenal pelvis is present to distention and the proximal right ureter is present. No radiopaque collecting system calculus. Distal right ureter is unremarkable. Small left extrarenal pelvis present. Urinary bladder is unremarkable. There is no bowel obstruction, moderate quantity of stool in the cecum is present. No inflammatory changes identified about the cecum. Appendix is unremarkable. There is no ascites. No pelvic free fluid. No enlarged abdominal or pelvic lymph nodes. No extraluminal gas, severe degenerative disk space narrowing from L3-L5 is present. There is moderate degenerative disk disease, otherwise also seen. IMPRESSION: That the patient has no acute inflammatory process or obstruction. ASSESSMENT AND PLAN: The patient was admitted with abdominal pain, nausea, hyponatremia, questionable urinary tract infection, multiple allergies, anxiety and what seems to be contact dermatitis due to poison alicia. The patient was started on ceftriaxone 1 gram IV daily as well as metoprolol succinate. She has also started on sucralfate 1 gram four times a day as well as ondansetron for nausea and vomiting. SEA TYSON MD DR: NAY/uli JOB#: [id number] / [id number]
[2018-08-08 15:02] VITALS: BP 162/78
[2018-08-08 20:27] VITALS: BP 160/71
[2018-08-08] MEDS: LACTOBACILLUS RHAMNOSUS GG 1 CAPSULE. PO SCH (21:37)
[2018-08-08] MEDS: cefTRIAXone IV Push 1 GM VIAL. IVP SCH (21:54)
--- NOTE | 2018-08-08 23:05 | EKG ---
[address] [address] Test Date: 2018-08-07 Test Time: 22:26:34 Pat Name: LISSETT ALCAZAR Department: Room: 123 A Gender: F Slps: : 1940 Requested By: NEIDA CASAREZ Order Number: [id number] Reading MD: Valeriano Mayes Measurements Intervals [place] Rate: 58 P: 45 [place]: 172 QRS: 4 QRSD: 90 T: 16 QT: 452 QTc: 448 Interpretive Statements SINUS RHYTHM T ABNORMALITY IN INFERIOR LEADS Electronically Signed On 08-12-2018 10:26:18 [employer] PROFESSION[employer] by Valeriano Mayes
[2018-08-08 23:33] VITALS: BP 130/68
[2018-08-09] MEDS: SUCRALFATE 1 GM TABLET. PO SCH ×4 (07:30→21:43)
[2018-08-09] MEDS: LACTOBACILLUS RHAMNOSUS GG 1 CAPSULE. PO SCH ×2 (09:21→21:43)
[2018-08-09] MEDS: METOPROLOL SUCC 24HR ER 25 MG TAB.ER.24H. PO SCH ×2 (09:22→21:45)
[2018-08-09 11:45] VITALS: BP 137/70
[2018-08-09 11:50] VITALS: BP 137/70
[2018-08-09] MEDS ORDERED: ACETAMINOPHEN 325 MG TABLET PO PRN (13:45)
[2018-08-09] MEDS ORDERED: CALCIUM CARBONATE 500 MG TAB.CHEW PO PRN (13:45)
[2018-08-09 16:56] VITALS: BP 149/68
[2018-08-09 19:00] VITALS: BP 127/69
[2018-08-09] MEDS: cefTRIAXone IV Push 1 GM VIAL. IVP SCH (21:45)
[2018-08-10 06:43] VITALS: BP 115/62
[2018-08-10] MEDS: SUCRALFATE 1 GM TABLET. PO SCH ×2 (08:23→11:46)
[2018-08-10 09:34] VITALS: BP 115/62
[2018-08-10] MEDS: LACTOBACILLUS RHAMNOSUS GG 1 CAPSULE. PO SCH (09:34)
[2018-08-10] MEDS: METOPROLOL SUCC 24HR ER 25 MG TAB.ER.24H. PO SCH (09:34)
[2018-08-10] MEDS ORDERED: LACT1WAF PO (11:47)
[2018-08-10] MEDS ORDERED: SUCR1TAB35 PO (11:48)
--- NOTE | 2018-08-10 12:47 | DS ---
DATE OF DISCHARGE: 08/10/2018 HOSPITAL COURSE: The patient is a 77-year-old female patient, who came with multiple complaints, mostly related to her, but seems to be acid reflux and also diarrhea. She has a multitude of allergies and she seemed to probably have also lactose intolerance, although she continued to eat dairy products and complains of diarrhea. She was extensively investigated and all her lab works were within normal range. CT scan of the abdomen was unremarkable and she was started on Carafate and a probiotic. She was treated for a presumed UTI and her urine culture turned out to be negative and her stool for salmonella, Shigella and Campylobacter were all negative. The patient was advised to keep her appointment with her radio disc jockey and should continue treatment with Carafate for at least a month. Unfortunately, she has too many allergies and she does not tolerate many medications. I wanted to put her on a proton pump inhibitor, but she seems to be not willing to accept any of that in any case. PHYSICAL EXAMINATION: GENERAL: When I saw her today, she looked well and was clearly in no apparent respiratory distress. She was somewhat pale, cachectic, but no jaundice, cyanosis, or thyromegaly. No jugular venous distension. No limb edema. VITAL SIGNS: Her heart rate was 67, blood pressure was 115/62, temperature was 97.9, respiratory rate was 18 and oxygen saturation was 96%. HEAD, EYES, EARS, NOSE AND THROAT: Normocephalic and atraumatic. NECK: Supple. HEART: Showed normal first and second sounds. No gallop, rub or murmur. CHEST: Clear to auscultation. No crepitation or rhonchi. ABDOMEN: Scaphoid, soft, nontender. No guarding or rigidity. No organomegaly. All hernial orifices intact. Bowel sounds normal. NEUROLOGIC: She was awake, alert, responding appropriately. All cranial nerves intact. EXTREMITIES: She moves extremities without difficulty. She ambulates without assistance or assistive devices. Her intake was 1460 and no output was recorded. LABORATORY DATA: Her most recent lab work showed a white cell count 4500, hemoglobin 13.5, hematocrit 38, MCV 89 and platelet count of 181,000. Her chemistry showed a serum sodium 133, potassium 4.3, chloride 102, bicarbonate 25, anion gap of 6, BUN 9, creatinine 1.1, estimated GFR was 48 mL per minute. Her glucose 101, calcium was 8.5. Her TSH was 2.854. Prothrombin time was 12.2, INR 1.2, APTT was 23. D-dimer was normal. Urinalysis showed that she has a large amount of leukocyte esterase, 5-10 wbc's and no bacteria and the fact that culture was negative. DISCHARGE MEDICATIONS: The patient will be discharged home to continue on lactobacillus acidophilus 1 capsule 3 times a day, sucralfate or Carafate 1 gram 4 times a day for a month, together with her metoprolol. I advised her to keep her appointment with her radio disc jockey as she has a multitude of allergies and if a month from now, she continued to have symptoms, she probably needs to have upper gastrointestinal endoscopy. I am pretty certain that she probably has lactose intolerance. FINAL DISCHARGE DIAGNOSES: Gastroesophageal reflux disease, and hyponatremia, resolved, likely lactose intolerance. SEA TYSON MD DR: NAY/uli JOB#: [id number] / [id number]
== END 2018-08-10 14:25 | disposition home or self-care (01) | DRG 392 ==
LOC: ER 20:05 → 1 SOUTH 23:00
PROVIDERS: ADMIT Internal Medicine; ATTEND Internal Medicine
DX: K21.9 Gastro-esophageal reflux disease without esophagitis (principal); E87.1 Hypo-osmolality and hyponatremia; E73.9 Lactose intolerance, unspecified; E11.9 Type 2 diabetes mellitus without complications; I10 Essential (primary) hypertension; M19.90 Unspecified osteoarthritis, unspecified site; F32.9 Major depressive disorder, single episode, unspecified; F41.9 Anxiety disorder, unspecified; Z87.440 Personal history of urinary (tract) infections; Z79.899 Other long term (current) drug therapy
CPT/HCPCS: 36415; 71046; 74021; 74177; 76700; 80048; 80076; 81001; 82550; 83690; 83735; 83880; 84443; 84484; 85025; 85379; 85610; 85730; 87045; 87086; 93005; 96361; 96374; G0238; J0696; J7120; Q9966; Q9967; 99285-25

== ENCOUNTER 2018-08-11 19:42 | Inpatient (IN) | payer MEDICARE, BC ==
[~2018-08-11] VITALS: Ht 165.1 cm; Wt 52.6 kg
[~2018-08-11 19:42] MED LIST changes: +LACT1WAF PO; +SUCR1TAB35 PO
[2018-08-11] MEDS ORDERED: ONDANSETRON PF 4 MG/2 ML VIAL. IV ONE (20:15)
[2018-08-11] MEDS ORDERED: ONDANSETRON ODT 4 MG TAB.RAPDIS PO ONE (20:30)
[2018-08-11 21:18] LABS: ALBUMIN 3.9 g/dL (3.4-5.0); ALBUMIN/GLOBULIN RATIO 1.7 (1.0-1.7); CALCIUM 8.4 mg/dL (8.5-10.1); CREATININE 0.9 mg/dL (0.6-1.0); GFR 60.9; TOTAL BILIRUBIN 1.2 mg/dL (0.2-1.0); TOTAL PROTEIN 6.2 g/dL (6.4-8.2)
[2018-08-11 21:19] LABS: POTASSIUM 2.9 mmol/L (3.5-5.1)
[2018-08-11 21:25] LABS: HEMATOCRIT 34.9 % (36.0-47.0); HEMOGLOBIN 12.6 g/dL (12.0-15.5); RED BLOOD COUNT 4.03 x10^6/uL (3.50-5.40); RED CELL DISTRIBUTION WIDTH 12.6 % (11.5-14.5); WHITE BLOOD COUNT 6.4 x10^3/uL (4.0-11.0)
[2018-08-11] MEDS ORDERED: POTASSIUM CHLORIDE 20 MEQ/15 ML ORAL LIQUID. PO ONE (21:30)
[2018-08-11] MEDS ORDERED: POTASSIUM CHLORIDE 30 MEQ in IV 1/2 NORMAL SALINE 1,000 ML IV ONE (21:30)
[2018-08-11] MEDS ORDERED: IV NORMAL SALINE 1,000ML 1,000 ML IV ONE (21:30)
--- NOTE | 2018-08-11 22:08 | PHYS DOC ---
Adult General Chief Complaint Chief Complaint vomiting HPI HPI 77 years old female presented emergency department with vomiting, generalized weakness started yesterday no any other symptoms no fever no chills Review of Systems Review of Systems Constitutional: Denies fever or chills [] Eyes: Denies change in visual acuity, redness, or eye pain [] HENT: Denies nasal congestion or sore throat [] Respiratory: Denies cough or shortness of breath [] Cardiovascular: No additional information not addressed in HPI [] GI: Denies abdominal pain, diarrhea [] : Denies dysuria or hematuria [] Musculoskeletal: Denies back pain or joint pain [] Integument: Denies rash or skin lesions [] Neurologic: Denies headache, focal weakness or sensory changes [] Endocrine: Denies polyuria or polydipsia [] All other systems were reviewed and found to be within normal limits, except as documented in this note. Current Medications Current Medications Current Medications Medications (Trade) Dose Ordered Sig/Kristina Start Time Stop Time Status Last Admin Dose Admin Ondansetron HCl (Zofran Odt) 4 mg 1X ONCE 08/11/18 20:30 08/11/18 20:31 DC 08/11/18 20:46 4 MG Ondansetron HCl (Zofran) 4 mg 1X ONCE 08/11/18 20:15 08/11/18 20:17 DC Potassium Chloride 30 meq/ Sodium Chloride 1,015 ml @ 1,000 mls/hr 1X ONCE 08/11/18 21:30 08/11/18 22:30 08/11/18 22:00 1,000 MLS/HR Potassium Chloride (KCl Oral Soln) 40 meq 1X ONCE 08/11/18 21:30 08/11/18 21:33 DC 08/11/18 21:52 40 MEQ Sodium Chloride 1,000 ml @ 1,000 mls/hr 1X ONCE 08/11/18 21:30 08/11/18 22:29 08/11/18 21:32 1,000 MLS/HR Allergies Allergies Allergies Coded Allergies Type Severity Reaction Last Updated Verified Nitrofurantoin Macrocrystal Allergy Intermediate 03/05/17 Yes Sulfa (Sulfonamide Antibiotics) Allergy Intermediate 03/05/17 Yes adhesive Allergy Intermediate 03/05/17 Yes amoxicillin Allergy Intermediate Unknown 03/05/17 Yes atenolol Allergy Intermediate 03/05/17 Yes azithromycin Allergy Intermediate Hives 03/05/17 Yes ciprofloxacin Allergy Intermediate 03/05/17 Yes clavulanic acid Allergy Intermediate Unknown 03/05/17 Yes diphenhydramine Allergy Intermediate Unknown 03/05/17 Yes guaifenesin Allergy Intermediate 03/05/17 Yes hydroxyzine Allergy Intermediate 08/08/18 Yes nitrofurantoin Allergy Intermediate 03/05/17 Yes prednisone Allergy Intermediate Unknown 03/05/17 Yes tetanus and diphtheria toxoids Allergy Intermediate 03/05/17 Yes triamcinolone Allergy Intermediate 08/08/18 Yes Physical Exam Physical Exam Constitutional: Well developed, well nourished, no acute distress, non-toxic appearance. [] HENT: Normocephalic, atraumatic, bilateral external ears normal, oropharynx moist, no oral exudates, nose normal. [] Eyes: PERRLA, EOMI, conjunctiva normal, no discharge. [] Neck: Normal range of motion, no tenderness, supple, no stridor. [] Cardiovascular:Heart rate regular rhythm, no murmur [] Lungs & Thorax: Bilateral breath sounds clear to auscultation [] Abdomen: Bowel sounds normal, soft, no tenderness, no masses, no pulsatile masses. [] Skin: Warm, dry, no erythema, no rash. [] Back: No tenderness, no CVA tenderness. [] Extremities: No tenderness, no cyanosis, no clubbing, ROM intact, no edema. [] Neurologic: Alert and oriented X 3, normal motor function, normal sensory function, no focal deficits noted. [] Psychologic: Affect normal, judgement normal, mood normal. [] Current Patient Data Vital Signs Vital Signs Date Time Temp Pulse Resp B/P (MAP) Pulse Ox O2 Delivery O2 Flow Rate FiO2 08/11/18 19:42 97.8 66 18 98 Room Air Lab Results Laboratory Tests Test 08/11/18 20:40 White Blood Count 6.4 x10^3/uL (4.0-11.0) Red Blood Count 4.03 x10^6/uL (3.50-5.40) Hemoglobin 12.6 g/dL (12.0-15.5) Hematocrit 34.9 % (36.0-47.0) L Mean Corpuscular Volume 87 fL (79-100) Mean Corpuscular Hemoglobin 31 pg (25-35) Mean Corpuscular Hemoglobin Concent 36 g/dL (31-37) Red Cell Distribution Width 12.6 % (11.5-14.5) Platelet Count 162 x10^3/uL (140-400) Sodium Level 125 mmol/L (136-145) L Potassium Level 2.9 mmol/L (3.5-5.1) *L Chloride Level 90 mmol/L (98-107) L Carbon Dioxide Level 21 mmol/L (21-32) Anion Gap 14 (6-14) Blood Urea Nitrogen 10 mg/dL (7-20) Creatinine 0.9 mg/dL (0.6-1.0) Estimated GFR (Cockcroft-Gault) 60.9 BUN/Creatinine Ratio 11 (6-20) Glucose Level 133 mg/dL (70-99) H Calcium Level 8.4 mg/dL (8.5-10.1) L Total Bilirubin 1.2 mg/dL (0.2-1.0) H Aspartate Amino Transferase (AST) 20 U/L (15-37) Alanine Aminotransferase (ALT) 17 U/L (14-59) Alkaline Phosphatase 54 U/L (46-116) Total Protein 6.2 g/dL (6.4-8.2) L Albumin 3.9 g/dL (3.4-5.0) Albumin/Globulin Ratio 1.7 (1.0-1.7) Lipase 215 U/L (73-393) EKG EKG [] Radiology/Procedures Radiology/Procedures [] Course & Med Decision Making Course & Med Decision Making Pertinent Labs and Imaging studies reviewed. (See chart for details) [] Final Impression Final Impression [] Problems: (1) Hyponatremia Dragon Disclaimer Dragon Disclaimer This electronic medical record was generated, in whole or in part, using a voice recognition dictation system. ULYSSES NEWTON MD Aug 11, 2018 22:08
[2018-08-11] MEDS ORDERED: ONDANSETRON PF 4 MG/2 ML VIAL. IV PRN (22:15)
[2018-08-11] MEDS: ACETAMINOPHEN 325 MG TABLET PO PRN (22:20)
[2018-08-12] MEDS: IV NORMAL SALINE 1,000ML 1,000 ML IV SCH ×2 (00:15→08:28)
[2018-08-12 00:21] VITALS: BP 168/84
[2018-08-12] MEDS ORDERED: MELO7.5T29 PO (01:32)
[2018-08-12 05:25] VITALS: BP 122/66
[2018-08-12 06:02] LABS: BASO % 0 % (0-3); EOS % 1 % (0-3); HEMATOCRIT 37.2 % (36.0-47.0); HEMOGLOBIN 13.4 g/dL (12.0-15.5); LYMPH # 1.5 x10^3/uL (1.0-4.8); LYMPH % 27 % (24-48); MEAN CORPUSCULAR HEMOGLOBIN 32 pg (25-35); MEAN CORPUSCULAR HGB CONC 36 g/dL (31-37); MEAN CORPUSCULAR VOLUME 88 fL (79-100); MONO # 0.3 x10^3/uL (0.0-1.1); MONO % 6 % (0-9); NEUT # 3.7 x10^3uL (1.8-7.7); NEUT % 67 % (31-73); PLATELET COUNT 171 x10^3/uL (140-400); RED BLOOD COUNT 4.24 x10^6/uL (3.50-5.40); RED CELL DISTRIBUTION WIDTH 12.9 % (11.5-14.5); WHITE BLOOD COUNT 5.5 x10^3/uL (4.0-11.0)
[2018-08-12 06:07] LABS: CALCIUM 7.9 mg/dL (8.5-10.1); GFR 53.9; POTASSIUM 4.5 mmol/L (3.5-5.1)
[2018-08-12] MEDS: ACETAMINOPHEN 325 MG TABLET PO PRN (08:29)
[2018-08-12] MEDS ORDERED: LACTOBACILLUS RHAMNOSUS GG 1 CAPSULE. PO SCH (09:00)
[2018-08-12] MEDS ORDERED: MELOXICAM 7.5 MG TABLET PO PRN (09:00)
[2018-08-12] MEDS ORDERED: METOPROLOL SUCC 24HR ER 25 MG TAB.ER.24H. PO SCH (09:00)
[2018-08-12 11:29] VITALS: BP 132/68
--- NOTE | 2018-08-12 12:42 | SSS ---
ADMIT DATE: 08/12/2018 HISTORY OF PRESENT ILLNESS: The patient is a 77-year-old female patient that has been [facility] in and out on numerous occasions. She seemed to be allergic to everything that we prescribed. She was discharged only 2 days ago after we started her on Carafate for possible reflux. She apparently allergic to every proton pump inhibitor including Protonix, omeprazole, Aciphex. She seemed to have probably some kind of lactose intolerance as whenever she takes any dairy products, she developed diarrhea and gases. She went home and was started on Carafate that she tolerated here without any problem. The moment, she went home she stated that she has generalized rash and hives everywhere, started having nausea and vomiting and came to the Emergency Room, was found to be extremely hyponatremic and hypokalemic. Her potassium was down to 2.9 and sodium was 125 and therefore she was admitted to [facility] and was rehydrated. Her potassium was replenished. However, given the magnitude of allergies that she has and the fact that she has had what seems to be either gastroesophageal reflux disease or some form of gastritis. Decision was made to transfer her to [facility] to consult the GI team there. She apparently has had upper and lower GI endoscopy by Dr. Mobley about 3 years ago and at that time, she was told that she has a polyp, but she was not sure whether it was in the colon or in her stomach. PAST MEDICAL HISTORY: Significant for hypertension, probably lactose intolerance and perhaps gastroesophageal reflux disease. SHE HAS ALSO ALLERGY TO POISON SASKIA. PAST SURGICAL HISTORY: Significant for upper GI endoscopy, colonoscopy and cervical polyp removed. ALLERGIES: She IS ALLERGIC TO NITROFURANTOIN MACROCRYSTAL, SULFA DRUGS, ADHESIVES, AMOXICILLIN, ATENOLOL, AZITHROMYCIN, CIPROFLOXACIN, CLAVULANIC ACID. SHE IS ALLERGIC TO STEROIDS GENERALLY, PREDNISONE, TRIAMCINOLONE, TETANUS TOXOIDS, HYDROXYZINE AND NOW CARAFATE. FAMILY HISTORY: She has one brother who was killed when he was young. Both parents are . SOCIAL HISTORY: She is single, never , has no children. She never smoked, does not drink alcohol or recreational drugs. 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 She retired when she was 56, old and took care of her parents up until they were . She lives alone in her farm with her cat. MEDICATIONS: She is currently on metoprolol succinate 25 mg half a tablet twice a day. REVIEW OF SYSTEMS: The patient denied any blurring of vision, cataract, glaucoma or macular degeneration. Denied any earache, tinnitus, or sensorineural deafness. Denied any nosebleeds, stuffy nose, or postnasal drip. Denied any sore throat, sore tongue, toothache, hoarseness of voice or difficulty swallowing. Did complain of nausea, vomiting, abdominal pain, diarrhea, but denied any hematemesis, melena, or hematochezia. Denied any dysuria, frequency, or hematuria. She denied any chest pain, shortness of breath, orthopnea, paroxysmal nocturnal dyspnea. Denied any cough, phlegm, or hemoptysis. Denied any dizziness, lightheadedness, or vertigo. She apparently has had upper and lower GI endoscopy done 3 years ago that both were unremarkable and were done by Dr. Mobley. PHYSICAL EXAMINATION: GENERAL: On arrival yesterday to the Emergency Room, she looked well and was clearly in no apparent respiratory distress. On examining her, she was well-developed, well-nourished, in no acute distress, nontoxic in appearance. VITAL SIGNS: Her heart rate on arrival was 63, blood pressure 145/77, her temperature was 97.8, respiratory rate was 18, and oxygen saturation was 98% on room air. HEAD, EYES, EARS, NOSE AND THROAT: Showed normocephalic, atraumatic. NECK: Supple. HEART: Showed normal first and second heart sounds with no gallop, rub or murmur. CHEST: Clear to auscultation. No crepitation or rhonchi. ABDOMEN: Distended, soft, nontender. No guarding or rigidity. No organomegaly. All hernial orifice intact. Bowel sounds normal. NEUROLOGIC: She was awake, alert, responding appropriately. All cranial nerves intact. EXTREMITIES: She moves extremities without difficulty. She ambulates without assistance or assistive devices. LABORATORY DATA: Her lab work on admission showed a white cell count 6400, hemoglobin 12.6, hematocrit of 35, MCV was 87 and platelet count of 162,000. Her serum sodium was only 125, potassium 2.9, chloride 90, bicarbonate 21, anion gap of 14, BUN 10, creatinine 0.9, estimated GFR was 61 mL per minute. Her glucose was 133. Calcium was 8.4, bilirubin 1.2. AST, and AST, ALT, alkaline phosphatase were normal. Total protein was 6.2, albumin was 3.9. Lipase was 215. The patient was admitted, was started on IV fluid in the form of normal saline with potassium and she did well. Her lab work this morning showed a serum sodium 138, potassium 4.5, chloride 105, bicarbonate 23, anion gap of 10, BUN 6, creatinine 1, estimated GFR was 53 mL per minute. Her glucose was 111, calcium was 7.9. ASSESSMENT AND PLAN: As the patient has been in and out of this facility for multiple times and I am really unable to find treatment for her symptoms. She is allergic to every proton pump inhibitor that we gave her, she is now allergic walter to Carafate according to her. She was on Meloxicam, which might have caused this to nonsteroidal anti-inflammatory, alcohol-induced gastritis. The patient will be transferred to [facility]. We will consult the Gastroenterology, probably we will do upper GI endoscopy to elucidate her symptoms further. SEA TYSON MD DR: NAY/uli JOB#: [id number] / [id number]
== END 2018-08-12 14:30 | disposition short-term general hospital (02) | DRG 641 ==
LOC: ER 19:42 → 1 SOUTH 23:53
PROVIDERS: ADMIT Internal Medicine; ATTEND Internal Medicine
DX: E87.1 Hypo-osmolality and hyponatremia (principal); E87.6 Hypokalemia; K29.20 Alcoholic gastritis without bleeding; I10 Essential (primary) hypertension; K21.9 Gastro-esophageal reflux disease without esophagitis; Z88.1 Allergy status to other antibiotic agents; Z88.2 Allergy status to sulfonamides; Z88.7 Allergy status to serum and vaccine; Z88.8 Allergy status to other drugs, medicaments and biological substances
CPT/HCPCS: 36415; 80048; 80053; 83690; 85025; 85027; 96365; J7030; Q0162; 99285-25

== ENCOUNTER → 2019-03-18 | Outpatient (CLI) | payer MEDICARE, BC ==
--- NOTE | 2019-03-19 15:52 | RAD ---
EXAM: DIGITAL SCREEN BILAT W/CAD HISTORY: routine screening evaluation. COMPARISON: Prior mammographic imaging dating back to 01/12/2015 Bilateral full field craniocaudal and mediolateral oblique images were obtained using digital technique. This study was interpreted with the benefit of Computerized Aided Detection (CAD). Breast Density: The breast parenchyma is dense, which could reduce the sensitivity of mammography. Breast parenchyma level density D. FINDINGS: The parenchymal pattern appears stable. Benign calcifications are present. No suspicious masses, microcalcifications or architectural distortion is present to suggest malignancy in either breast. The visualized axillae are unremarkable. IMPRESSION: No mammographic evidence of malignancy. BI-RADS CATEGORY: 2 BENIGN FINDING(S) RECOMMENDED FOLLOW-UP: 12M 12 MONTH FOLLOW-UP Annual screening mammography is recommended, unless clinically indicated sooner based on symptoms or change in physical exam. PQRS compliance statement: Patient information was entered into a reminder system with a target due date for the next mammogram. Mammography is a sensitive method for finding small breast cancers, but it does not detect them all and is not a substitute for careful clinical examination. A negative mammogram does not negate a clinically suspicious finding and should not result in delay in biopsying a clinically suspicious abnormality. "Our facility is accredited by the [employer] Mammography Program." MTDD
== END | disposition home or self-care (01) ==
LOC: MAMMO 08:14
PROVIDERS: ATTEND Specialist
DX: Z12.31 Encounter for screening mammogram for malignant neoplasm of breast (principal); N64.89 Other specified disorders of breast
CPT/HCPCS: 77067

== ENCOUNTER 2020-03-02 19:50 | Inpatient (IN) | payer MEDICARE, BC ==
[~2020-03-02] VITALS: Ht 165.1 cm; Wt 52.6 kg
[~2020-03-02 19:50] MED LIST changes: -KETO120S2 TP; +KETO120S4 TP
[2020-03-02] MEDS ORDERED: IV NORMAL SALINE 500ML 500 ML IV ONE ×2 (20:15→22:00)
[2020-03-02] MEDS ORDERED: ONDANSETRON PF 4 MG/2 ML VIAL. IVP ONE (20:15)
--- NOTE | 2020-03-02 20:18 | PHYS DOC ---
Past History Past Medical History: Anxiety, Arthritis, Depression, Diabetes, Gallstones, GERD, Hypertension, UTI Past Surgical History: No Surgical History Smoking: Non-smoker Alcohol Use: None Drug Use: None General Adult EDM: Chief Complaint: HEADACHE HPI: HPI: 79-year-old female presents with headache, sinus pressure, vomiting, shaking. This all started 3 days ago with sinus pressure and intermittent headache. She has had headaches from her allergies and sinus infections in the past. Patient works outside frequently. She has been trying to drink water and Gatorade. Overall, she states that the way she feels is similar to a year ago when she had a very low potassium. Today she had a few episodes of vomiting and has had a shaking in her hands. She was concerned about losing her balance and falling so she came to the emergency room. She continues to have a posterior headache today. She tells me that she has lost about 6 pounds over the last couple of months. She further admits that she has been working outside and sweating a lot also. She denies fever chills. Review of Systems: Review of Systems: Constitutional: Denies fever or chills Eyes: Denies change in visual acuity HENT: Nasal congestion Respiratory: Denies cough or shortness of breath Cardiovascular: Denies chest pain or edema GI: nausea, vomiting. Denies abdominal pain, bloody stools or diarrhea : Denies dysuria Musculoskeletal: Denies back pain or joint pain Integument: Denies rash Neurologic: Headache, shaking. Denies focal weakness or sensory changes Endocrine: Denies polyuria or polydipsia Lymphatic: Denies swollen glands Psychiatric: Denies depression or anxiety Heart Score: Risk Factors: Risk Factors: DM, Current or recent (<one month) smoker, HTN, HLP, family history of CAD, obesity. Risk Scores: Score 0 - 3: 2.5% MACE over next 6 weeks - Discharge Home Score 4 - 6: 20.3% MACE over next 6 weeks - Admit for Clinical Observation Score 7 - 10: 72.7% MACE over next 6 weeks - Early Invasive Strategies Current Medications: Current Meds: Current Medications Medications (Trade) Dose Ordered Sig/Kristina Start Time Stop Time Status Last Admin Dose Admin Ondansetron HCl (Zofran) 4 mg 1X ONCE 03/02/20 20:15 03/02/20 20:16 03/02/20 20:11 4 MG Sodium Chloride 500 ml @ 0 mls/hr 1X ONCE 03/02/20 20:15 03/02/20 20:16 03/02/20 20:12 500 MLS/HR Allergies: Allergies: Allergies Coded Allergies Type Severity Reaction Last Updated Verified Nitrofurantoin Macrocrystal Allergy Intermediate 03/05/17 Yes Sulfa (Sulfonamide Antibiotics) Allergy Intermediate 03/05/17 Yes adhesive Allergy Intermediate 03/05/17 Yes amoxicillin Allergy Intermediate Unknown 03/05/17 Yes atenolol Allergy Intermediate 03/05/17 Yes azithromycin Allergy Intermediate Hives 03/05/17 Yes ciprofloxacin Allergy Intermediate 03/05/17 Yes clavulanic acid Allergy Intermediate Unknown 03/05/17 Yes diphenhydramine Allergy Intermediate Unknown 03/05/17 Yes guaifenesin Allergy Intermediate 03/05/17 Yes hydroxyzine Allergy Intermediate 08/08/18 Yes nitrofurantoin Allergy Intermediate 03/05/17 Yes prednisone Allergy Intermediate Unknown 03/05/17 Yes tetanus and diphtheria toxoids Allergy Intermediate 03/05/17 Yes triamcinolone Allergy Intermediate 08/08/18 Yes Physical Exam: PE: Constitutional: Well developed, thin, well nourished, no acute distress, non- toxic appearance. [] HENT: Normocephalic, atraumatic, bilateral external ears normal, oropharynx moist, no oral exudates, nose normal. [] Eyes: PERRLA, EOMI, conjunctiva normal, no discharge. [] Neck: Normal range of motion, no tenderness, supple, no stridor. [] Cardiovascular: Heart rate regular rhythm, no murmur [] Lungs & Thorax: Bilateral breath sounds clear to auscultation [] Abdomen: Bowel sounds normal, soft, no tenderness, no masses, no pulsatile masses. [] Skin: Warm, dry, no erythema, no rash. [] Back: No tenderness, no CVA tenderness. [] Extremities: No tenderness, no cyanosis, no clubbing, ROM intact, no edema. [] Neurologic: Alert and oriented X 3, normal motor function, normal sensory function, no focal deficits noted. [] Psychologic: Affect normal, judgement normal, mood normal. [] Current Patient Data: Vital Signs: Vital Signs Date Time Temp Pulse Resp B/P (MAP) Pulse Ox O2 Delivery O2 Flow Rate FiO2 7/8/20 20:02 98.5 70 181/87 (118) 98 Room Air 03/02/20 19:57 18 EKG: EKG: [] Radiology/Procedures: Radiology/Procedures: [] Course & Med Decision Making: Course & Med Decision Making Pertinent Labs and Imaging studies reviewed. (See chart for details) The patient's head CT is negative for acute findings. Her labs show hyponatremia. I have given her a liter of normal saline in the ED. She is feeling a little bit better. She still has some nausea. She was given 4 mg of Zofran for her vomiting. She has had no further vomiting. I will admit the patient for further management. I spoke with Dr. Bright and he has accepted the patient for admission. A spot urine sodium has been ordered. [] Dragon Disclaimer: Dragon Disclaimer: This electronic medical record was generated, in whole or in part, using a voice recognition dictation system. Departure Departure: Impression: Primary Impression: Hyponatremia Additional Impressions: Nausea and vomiting Dehydration Disposition: ADMITTED INPATIENT Admitting Physician: Carroll Bright Condition: STABLE Referrals: ALEIDA CABELLO MD (PCP) Justification of Admission: Justification of Admission: Justification of Admission Dx: Comment: Comments: Hyponatremia, dehydration KING NOBLES DO Mar 02, 2020 20:18
[2020-03-02 20:25] LABS: BASO % 0 % (0-3); EOS # 0.1 x10^3/uL (0.0-0.7); EOS % 1 % (0-3); HEMATOCRIT 39.5 % (36.0-47.0); LYMPH # 1.8 x10^3/uL (1.0-4.8); LYMPH % 26 % (24-48); MEAN CORPUSCULAR HEMOGLOBIN 32 pg (25-35); MEAN CORPUSCULAR HGB CONC 36 g/dL (31-37); MEAN CORPUSCULAR VOLUME 90 fL (79-100); MONO # 0.4 x10^3/uL (0.0-1.1); MONO % 6 % (0-9); NEUT # 4.7 x10^3uL (1.8-7.7); NEUT % 67 % (31-73); PLATELET COUNT 219 x10^3/uL (140-400); RED BLOOD COUNT 4.41 x10^6/uL (3.50-5.40); RED CELL DISTRIBUTION WIDTH 12.3 % (11.5-14.5)
[2020-03-02 20:31] LABS: CALCIUM 8.3 mg/dL (8.5-10.1); CREATININE 1.2 mg/dL (0.6-1.0); GFR 43.4; POTASSIUM 3.8 mmol/L (3.5-5.1)
[2020-03-02 20:37] LABS: ALBUMIN 3.9 g/dL (3.4-5.0); ALBUMIN/GLOBULIN RATIO 1.4 (1.0-1.7); TOTAL BILIRUBIN 1.6 mg/dL (0.2-1.0); TOTAL PROTEIN 6.7 g/dL (6.4-8.2)
--- NOTE | 2020-03-02 20:40 | RAD ---
CT brain without contrast. HISTORY: Headaches, sinus pressure, vomiting CT scan of brain was done without contrast. Sinuses are clear. A skull fracture is not identified. There is an old parietal infarct on the right with focal encephalomalacia. There is dilatation of the lateral ventricle on the right from the infarct. There is no mass or shift of the midline. There is no intracranial hemorrhage or subdural hematoma. There is decreased density in the white matter from microvascular changes. IMPRESSION: 1. Chronic microvascular changes. 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 An acute CVA is not identified. PQRS Compliance Statement: One or more of the following individualized dose reduction techniques were utilized for this examination: 1. Automated exposure control 2. Adjustment of the mA and/or kV according to patient size 3. Use of iterative reconstruction technique Electronically signed by: Emanuel Barry MD (03/02/2020 8:37 PM) [facility]
[2020-03-02 21:57] LABS: BILIRUBIN,URINE NEG (NEG); CLARITY,URINE CLEAR; COLOR,URINE YELLOW; GLUCOSE,URINE NEG (NEG)
[2020-03-02 21:58] LABS: BACTERIA,URINE 0 /HPF (0-FEW); NITRITE,URINE NEG (NEG); RBC,URINE OCC /HPF (0-2); SQUAMOUS EPITHELIAL CELL,UR FEW /LPF; UROBILINOGEN,URINE 0.2 mg/dL (0.2 mg/dL); WBC,URINE OCC /HPF (0-4)
[2020-03-02] MEDS ORDERED: ONDANSETRON PF 4 MG/2 ML VIAL. IVP PRN (22:45)
[2020-03-02] MEDS ORDERED: PROCHLORPERAZINE 10 MG/2 ML VIAL. IV ONE (22:45)
[2020-03-02] MEDS ORDERED: ACETAMINOPHEN 325 MG TABLET PO PRN (22:45)
--- NOTE | 2020-03-02 23:45 | NUR ---
Admission Note: pt transported via EMS from ED to ICU room 3, pt able to ambulate from cart to bed w/one person assist, no c/o pain or n/v at this time, VSS, pt oriented to room, surroundings, call light and unit routines, will continue to monitor.
[2020-03-02 23:54] VITALS: BP 138/57
[2020-03-03] MEDS ORDERED: ONDA4TAB7 PO (00:21)
--- NOTE | 2020-03-03 00:45 | NUR ---
Called Dr. Bright for IV fluid orders. Orders received.
[2020-03-03] MEDS: IV NORMAL SALINE 1,000ML 1,000 ML IV SCH ×3 (00:55→20:12)
[2020-03-03 06:01] LABS: CALCIUM 8.3 mg/dL (8.5-10.1); CREATININE 1.1 mg/dL (0.6-1.0)
[2020-03-03 06:06] VITALS: BP 106/59
--- NOTE | 2020-03-03 06:17 | NUR ---
Shift Note: Pt is a/o x4, VSS, no c/o pain or n/v at this time, pt ambulating w/standby assistance, IV fluids infusing as ordered. Am sodium is 131 and creatinine is 1.1. Home medications entered but need to be ordered. Pt drinking water as she requests. Pt voiding clear yellow urine.
--- NOTE | 2020-03-03 06:20 | EKG ---
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
--- NOTE | 2020-03-03 10:53 | HP ---
ADMIT DATE: ADMISSION HISTORY AND PHYSICAL ATTENDING PHYSICIAN: Dr. Alvarado. CHIEF COMPLAINT: Weakness and headache. HISTORY OF PRESENT ILLNESS: The patient is a 79-year-old female, otherwise healthy, presented to the ED with a 2-day history of sinus pressure, vague nonspecific symptoms, headache, weakness. She has GI symptoms consistent with irritable bowel syndrome. She is under a lot of stress. She was found to have a concomitant serum sodium level of 122 mEq per liter. She has been doing quite a bit of guard work, trimming trees and someone at her house in the hot 90+ degree weather. She was dehydrated. She drank quite a bit of water and diluted a sodium. She was admitted then with dehydration and symptomatic hyponatremia. She is not on a diuretic. PAST MEDICAL HISTORY: Significant for anxiety, degenerative arthritis, major depression, gallstones, gastroesophageal reflux disease, hypertension, benign polyps of the stomach and urinary tract infection. She has frequent GI issues and most recently had an EGD and colonoscopy less than a year ago, which were entirely benign. ALLERGIES: She has multiple drug allergies. She tells me about 25 different meds including MACRODANTIN, SULFA DRUGS, ADHESIVES, AMOXICILLIN, ATENOLOL, AZITHROMYCIN, CIPROFLOXACIN, VALPROIC ACID, GUAIFENESIN, HYDROXYZINE, NITROFURANTOIN, PREDNISONE, TETANUS AND DIPHTHERIA TOXOIDS and multiple other drugs, exact etiology is unclear. She may have insensitivity. In any event, she has high anxiety component in getting the history. SOCIAL HISTORY: She is a nonsmoker and nondrinker. FAMILY HISTORY: Both parents lived to their late 80s. She never . She spent most of her adult life caring for her elderly parents. 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 MEDICATIONS: Her current medicines were minimal. They include Rolaids. She tells me that she cannot tolerate any of the proton pump inhibitors nor can she tolerate the histamine blockers for whatever various reasons. REVIEW OF SYSTEMS: Significant for anxiety. She has a hard time dealing with the lock down the last 4 months, she has been more or less isolated. Her social network is her alevism. She has no children or family. She has been unable to go to her activities center and this has contributed to her stress. She denied any recent travel, shortness of breath, chest pain, palpitation, fevers. All other systems reviewed and turned to be negative. PHYSICAL EXAMINATION: GENERAL: When I saw her, this is a pleasant elderly female who was alert, but she has a strong anxiety component. INITIAL VITAL SIGNS: Today showed a blood pressure of 138/57 mmHg, temperature is 98.6 degrees Fahrenheit, pulse was 60 and regular and her oxygen saturations were 97% on room air. HEENT: The head is without trauma. The pupils are reactive. The sclerae are nonicteric. Oropharynx is clear. NECK: Supple, no thyromegaly or elevated venous pressure. LUNGS: Otherwise, clear to auscultation. CARDIOVASCULAR: Showed regular heart tones. Normal S1 and S2. There are no obvious gallops or murmurs. Peripheral pulses are palpable and full. ABDOMEN: Soft, scaphoid, nontender, no organomegaly. Bowel sounds are normoactive. EXTREMITIES: Show no cyanosis or edema. SKIN: Warm and dry. NEUROLOGIC: Focally intact. Speech is fluent. Sulfide Head Operator were intact. She has a strong anxiety component. There are no focal deficits. PERTINENT LABORATORY STUDIES AND IMAGING: She had the obligatory CT of the head done in the ED, which showed chronic microvascular changes, old right parietal infarct. No acute changes identified. Her hemoglobin is maintained at 14.0 g/dL with a white count of 7000. Her electrolytes showed a sodium of 122 mEq, chloride 91, creatinine is 1.2 mg percent, nonfasting blood sugar 156, calcium is adequate. Total bilirubin 1.6. Troponin levels were nonischemic. ASSESSMENT: 1. A 79-year-old female with dehydration. 2. Secondary hyponatremia due to dilutional effects of drinking too much of water. 3. Strong anxiety component. 4. Gastroesophageal reflux disease. 5. [place] signs of irritable bowel syndrome. 6. Underlying depression with anxiety. PLAN: 1. Admit to the inpatient unit. 2. Gentle IV hydration with saline. 3. Serial chemistries. 4. Diet as tolerated. 5. Because of low blood pressure, we have held her small dose of metoprolol for now. VICENTE ALVARADO MD DR: DONNA/uli JOB#: [id number] / [id number] ALEIDA Shell MD
[2020-03-03 11:00] VITALS: BP 131/71
[2020-03-03 15:38] VITALS: BP 136/53
[2020-03-03 19:25] VITALS: BP 166/84
[2020-03-03 21:20] VITALS: BP 161/77
[2020-03-03 23:20] VITALS: BP 157/92
[2020-03-04] MEDS: IV NORMAL SALINE 1,000ML 1,000 ML IV SCH (05:45)
[2020-03-04 05:55] VITALS: BP 172/78
[2020-03-04 06:16] LABS: CREATININE 1.1 mg/dL (0.6-1.0); POTASSIUM 4.1 mmol/L (3.5-5.1)
[2020-03-04] MEDS ORDERED: METOPROLOL TART IMMED RELEASE 25 MG TABLET PO SCH (09:45)
[2020-03-04 11:00] VITALS: BP 147/70
--- NOTE | 2020-03-04 12:39 | DS ---
DATE OF DISCHARGE: 03/04/2020 PRIMARY CARE PHYSICIAN: Dr. Aleida Cabello. FINAL DISCHARGE DIAGNOSES: 1. Symptomatic hyponatremia, corrected. 2. Psychogenic water drinking causing hyponatremia. 3. Dehydration, rehydrated. 4. Underlying significant anxiety. 5. Gastroesophageal reflux disease. 6. Allergic rhinitis. 7. Irritable bowel syndrome. HISTORY AND PHYSICAL: This 79-year-old female presented to the ED with a 2-day history of sinus pressure, congestion and weakness. She had been working outdoors in the heat. Her serum sodium on admission was 122 mEq/L. She had symptoms of dehydration and hyponatremia due to excess ingestion of free water. PHYSICAL EXAMINATION: Please see the dictated note. PERTINENT LABORATORY AND X-RAY STUDIES: Admission hemoglobin was 14.0 g/dL with a white count of 7000. Her electrolytes on admission, sodium was 122 mEq, the next day with gentle IV saline hydration is up to 131 and by the ____ third hospital day, it is up to 140 mEq/L. Creatinine stable at 1.1 mg/dL. CO2 was 25. Her cardiac enzymes were negative for coronary ischemia and a random urinary sodium was measured at 26, which is still close in the range of appropriate urinary concentration. I do not believe that she has SIADH at this time. COURSE IN THE HOSPITAL: The patient was admitted with dilutional hyponatremia. She received 2 days of intravenous saline gently. Her serum sodium came back to normal and prior to discharge was ____ mEq/L. Blood pressure was adequate at 157/92. Temperature was normal and she felt well. At this time, I recommend that she use Gatorade when she gets dehydrated and to avoid drinking excess amounts of water, which can cause significant hyponatremia. She will continue her metoprolol 12.5 mg b.i.d. I recommended Claritin-D [id number] for sinus congestion. She will followup with her primary care physician, Dr. Cabello. The patient was then discharged from our hospital in stable condition with explicit instructions and followup care. VICENTE ALVARADO MD DR: DONNA/uli JOB#: [id number] / [id number] ALEIDA CABELLO MD
[2020-03-04 13:00] VITALS: BP 151/73
--- NOTE | 2020-03-04 14:10 | NUR ---
Discharge Note: LISSETT ALCAZAR ICU 3 Discharge instructions and discharge home medications reviewed with Patient and a copy given. All questions have been answered and understanding verbalized. Patient discharged to home. Patient took all personal belongings with her. Patient left unit via ambulation accompanied by RN.
== END 2020-03-04 14:10 | disposition home or self-care (01) | DRG 641 ==
LOC: ER 19:50 → ICU 22:10
PROVIDERS: ADMIT Hospitalist; ATTEND Hospitalist
DX: E87.1 Hypo-osmolality and hyponatremia (principal); E86.0 Dehydration; I10 Essential (primary) hypertension; E11.9 Type 2 diabetes mellitus without complications; F41.8 Other specified anxiety disorders; K21.9 Gastro-esophageal reflux disease without esophagitis; K58.9 Irritable bowel syndrome, unspecified; F32.9 Major depressive disorder, single episode, unspecified; M19.90 Unspecified osteoarthritis, unspecified site; Z88.8 Allergy status to other drugs, medicaments and biological substances; Z79.899 Other long term (current) drug therapy; Z88.2 Allergy status to sulfonamides; Z91.048 Other nonmedicinal substance allergy status
CPT/HCPCS: 36415; 70450; 80048; 80053; 81001; 84300; 84484; 85025; 93005; 96374; J2405; J7040; 99285-25; J7030

== ENCOUNTER → 2021-08-11 | Outpatient (CLI) | payer MEDICARE, BC ==
[~2021-08-11] MED LIST changes: +ONDA4TAB7 PO
--- NOTE | 2021-08-11 17:38 | RAD ---
XR CERVICAL SPINE 2-3V History: Cervicalgia Comparison: None. Technique: 3 views of the cervical spine. Findings: There are 7 non-rib bearing cervical vertebral segments. There is no evidence of fracture. There appears to be a 7 mm sclerotic lesion in the posterior elemen ts of C2. Mild retrolisthesis of C3 on C4 and C4 on C5. Multilevel cervical facet hypertrophy. Degenerative disc space narrowing throughout the cervical spine greatest at C4-C5 with complete loss of the disc space. Uncovertebral hypertrophy is greatest at C4-C5 and present to a lesser extent thro ughout the cervical spine. Soft tissues are unremarkable. IMPRESSION: 1. Apparent sclerotic lesion in the posterior elements of C2. This may represent enostosis versus bl astic bone lesion. Recommend noncontrast CT of the cervical spine for further evaluation. 2. Advanced multilevel degenerative disc and facet disease greatest at C4-C5 with potential for fora zhanna stenoses at multiple levels. If there is concern for radiculopathy, recommend MRI cervical spin e for further evaluation. 3. No acute fracture is identified. Electronically signed by: Ghassan Mcmahan MD (08/11/2021 5:35 PM) [facility]
== END ==
LOC: RAD 16:05
PROVIDERS: ATTEND Specialist
DX: M50.321 Other cervical disc degeneration at C4-C5 level (principal); M48.02 Spinal stenosis, cervical region
CPT/HCPCS: 72040

== ENCOUNTER → 2021-08-17 | Outpatient (CLI) | payer MEDICARE, BC ==
--- NOTE | 2021-08-17 11:02 | RAD ---
EXAM: Neck CT without contrast. HISTORY: Abnormal cervical radiographs. Sclerotic lesion within C2. TECHNIQUE: Computed tomographic images of the head were obtained without contrast. *One or more of the following individualized dose reduction techniques were utilized for this examina tion: 1. Automated exposure control. 2. Adjustment of the mA and/or kV according to patient size. 3. Use of iterative reconstruction technique. COMPARISON: Radiographs dated 08/11/2021. FINDINGS: There is minimal anterolisthesis of C3 on C4 and retrolisthesis of C4 on C5 and C5 on C6. T here is degenerative endplate remodeling with disc space narrowing, osteophytosis and Schmorl's node formation primarily at C4-C5. There are few small lucent lesions within the vertebral bodies likely d ue to a combination of bony mineralization and small hemangiomas. There is a 7 mm sclerotic lesion wi thin the junction of the left lamina and spinous process of C2. There is a similar-appearing scleroti c lesion within the right C4 vertebral body. 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 There is asymmetric dilatation of the occipital horn of the right lateral ventricle likely due to asy mmetric posterior cerebral volume loss status post chronic infarction. The visualized orbits are unre markable. The paranasal sinuses and mastoid air cells are clear. There is rightward nasal septal lidia ation. The temporomandibular joints are intact. There is no neck mass or lymphadenopathy. The parotid , submandibular and thyroid glands are unremarkable. The lung apices are unremarkable. At C2-C3, there is a shallow posterior central disc protrusion. There is endplate remodeling. There i s mild right facet arthropathy. There is no stenosis. At C3-C4, there is a disc bulge and endplate remodeling. There is moderate right and mild left facet arthropathy. There is right greater than left uncovertebral arthropathy. There is moderate to severe right and mild left foraminal stenosis. At C4-C5, there is a disc bulge and endplate osteophytosis. There is mild bilateral facet arthropathy . There is bilateral uncovertebral arthropathy. There is severe bilateral foraminal stenosis. There i s mild central canal stenosis. At C5-C6, there is a disc bulge and endplate osteophytosis. There is moderate right facet arthropathy . There is bilateral uncovertebral arthropathy. There is moderate right and mild left foraminal steno sis. At C6-C7, there is a disc bulge and endplate osteophytosis. There is mild right facet arthropathy. Th ere is bilateral uncovertebral arthropathy. There is mild right and [id number] left foraminal s tenosis. IMPRESSION: 1. Small sclerotic lesions within the posterior elements of C2 and vertebral body of C4. In the absen ce of known malignancy to suggest osseous metastases, these are likely benign bone islands. 2. Multilevel degenerative change involving the cervical spine, described in detail above. This resul ts in foraminal and central canal stenosis at the aforementioned levels. 3. Ex vacuo dilatation of the posterior right lateral ventricle due to volume loss status post chroni c infarction. Electronically signed by: Irene Bernal MD (08/17/2021 11:00 AM) [id number]
== END ==
LOC: CT 10:09
PROVIDERS: ATTEND Specialist
DX: M47.812 Spondylosis without myelopathy or radiculopathy, cervical region (principal); M48.02 Spinal stenosis, cervical region; M50.21 Other cervical disc displacement, high cervical region; M48.8X2 Other specified spondylopathies, cervical region; J34.2 Deviated nasal septum; G95.89 Other specified diseases of spinal cord; M25.78 Osteophyte, vertebrae; M43.12 Spondylolisthesis, cervical region
CPT/HCPCS: 70490

== ENCOUNTER → 2021-09-05 | Outpatient (CLI) | payer MEDICARE, BC ==
--- NOTE | 2021-09-05 13:56 | RAD ---
BILATERAL DIGITAL SCREENING 2-D AND 3-D MAMMOGRAM INDICATION: Routine screening. COMPARISON: Prior studies including one of 03/18/2019. Interpretation was made using CAD. FINDINGS: Breast Density: C RIGHT BREAST: No suspicious masses, calcifications or areas of architectural distortion are seen. LEFT BREAST: No suspicious masses, calcifications or areas of architectural distortion are seen. IMPRESSION: 1. No imaging evidence of malignancy. ASSESSMENT: BI-RADS 1. Negative. RECOMMENDATION: Routine annual screening mammogram. The facility will notify the patient of the results via mail. Patient information will be entered int o the mammography reminder system with a target recall date for the next mammogram. A reminder letter will be generated by the facility. Electronically signed by: Олег Leiva Jr., MD (09/05/2021 1:54 PM) [id number]
--- NOTE | 2021-09-05 14:05 | RAD ---
EXAM: Chest, abdomen and pelvis CT without intravenous contrast. HISTORY: Entire body pain. TECHNIQUE: Computed tomographic images of the chest, abdomen and pelvis were obtained without contras t. Multiplanar reformatting was performed. *One or more of the following individualized dose reduction techniques were utilized for this examina tion: 1. Automated exposure control. 2. Adjustment of the mA and/or kV according to patient size. 3. Use of iterative reconstruction technique. COMPARISON: Neck CT dated 08/17/2021. Abdomen and pelvis CT dated 08/07/2018. FINDINGS: Chest: The heart is normal in size. The thoracic aorta is normal in caliber. No pathologica lly enlarged mediastinal or hilar lymph node is seen. There is calcified atherosclerotic plaque invol ving the coronary arteries. There is no pneumothorax or pleural effusion. There are a few tiny pleural-based and peripheral nodul ar opacities within the bilateral posterior lower lobes due to atelectasis. There is lingular and ant erior inferior medial right upper lobe pleural parenchymal scarring. There is callus formation surrou nding a healing lateral right 10th rib fracture. Abdomen and pelvis: No hepatic lesion is seen. The gallbladder, pancreas, spleen and stomach are unre markable. There is a stable 2.0 cm left adrenal nodule, the attenuation of which favors a benign raymond annamarie. There is mild right renal pelviectasis and a prominent proximal right ureter, likely due to the hydra tion status of the patient. There is no cuco hydronephrosis. The bladder is unremarkable. There is n o appendicitis. There is no bowel obstruction. There is aortic and bilateral iliac atherosclerosis. T here is no aneurysm. The uterus is unremarkable. No adnexal lesion is seen. There is no lymphadenopathy. There is no acute osseous finding. There is degenerative change throughout the lumbar spine. There are few small scler otic lesions within the vertebral bodies and bony pelvis. There are few small benign osseous hemangio mas. There is a small incidental lipoma within the right abdominal oblique musculature. IMPRESSION: 1. Healing lateral right 10th rib fracture. 2. Stable 2.0 cm left adrenal adenoma. 3. Stable prominent right renal collecting system, without cuco hydronephrosis. No obstructing lesio n is seen. 4. Stable small sclerotic lesions within the lumbar vertebral bodies and bony pelvis. The stability f avors benign bone islands. Electronically signed by: Irene Bernal MD (09/05/2021 2:03 PM) [id number]
== END ==
LOC: CT 12:30
PROVIDERS: ATTEND Specialist
DX: Z12.31 Encounter for screening mammogram for malignant neoplasm of breast (principal); J98.11 Atelectasis; J98.4 Other disorders of lung; M54.2 Cervicalgia; I25.10 Atherosclerotic heart disease of native coronary artery without angina pectoris; D35.02 Benign neoplasm of left adrenal gland; D18.09 Hemangioma of other sites; S22.31XD Fracture of one rib, right side, subsequent encounter for fracture with routine healing; X58.XXXD Exposure to other specified factors, subsequent encounter
CPT/HCPCS: 71250; 74176; 77063; 77067

== ENCOUNTER 2021-09-19 22:59 | Emergency (ER) | payer MEDICARE, BC ==
[~2021-09-19] VITALS: Ht 165.1 cm; Wt 52.0 kg
[2021-09-19] MEDS ORDERED: METOCLOPRAMIDE HCL 10 MG/2 ML VIAL. IVP ONE (23:15)
[2021-09-19] MEDS ORDERED: ONDANSETRON PF 4 MG/2 ML VIAL. IVP ONE (23:15)
[2021-09-19] MEDS ORDERED: IV RINGERS SOLUTION,LACTATED 1,000 ML IV ONE (23:15)
--- NOTE | 2021-09-19 23:17 | PHYS DOC ---
Past History Past Medical History: Anxiety, Arthritis, Depression, Diabetes, Gallstones, GERD, Hypertension, UTI Past Surgical History: No Surgical History Smoking: Non-smoker Alcohol Use: None Drug Use: None Adult General Chief Complaint Chief Complaint: NAUSEA/VOMITING/DIARRHEA HPI HPI Patient is a 80-year-old female with multiple comorbidities and allergies who presents emergency department with a chief complaint of nonbloody nonbilious emesis and watery diarrhea which started a couple hours ago. States she was fine this morning, eating and drinking her normal male Sinemet 8:00 this evening had 3 episodes of vomiting. States that shortly after had a couple episodes of nonbloody soft to watery diarrhea. Denies any recent traumas, travels, illnesses, fevers, chest pain, shortness of breath, abdominal pain, n umbness/weakness/tingling. Denies any dysuria, hematuria, blood in the stool. Denies any known ill contacts. States she cannot get the Covid vaccine because she is allergic to all of them. Review of Systems Review of Systems Review of systems otherwise unremarkable except noted in HPI Allergies Allergies Allergies Coded Allergies Type Severity Reaction Last Updated Verified Nitrofurantoin Macrocrystal Allergy Intermediate 03/05/17 Yes Sulfa (Sulfonamide Antibiotics) Allergy Intermediate 03/05/17 Yes adhesive Allergy Intermediate 03/05/17 Yes amoxicillin Allergy Intermediate Unknown 03/05/17 Yes atenolol Allergy Intermediate 03/05/17 Yes azithromycin Allergy Intermediate Hives 03/05/17 Yes ciprofloxacin Allergy Intermediate 03/05/17 Yes clavulanic acid Allergy Intermediate Unknown 03/05/17 Yes diphenhydramine Allergy Intermediate Unknown 03/05/17 Yes guaifenesin Allergy Intermediate 03/05/17 Yes hydroxyzine Allergy Intermediate 08/08/18 Yes nitrofurantoin Allergy Intermediate 03/05/17 Yes prednisone Allergy Intermediate Unknown 03/05/17 Yes tetanus and diphtheria toxoids Allergy Intermediate 03/05/17 Yes triamcinolone Allergy Intermediate 08/08/18 Yes Physical Exam Physical Exam Constitutional: Well developed, well nourished, no acute distress, non-toxic appearance. [] HENT: Normocephalic, atraumatic, bilateral external ears normal, oropharynx moist, no oral exudates, nose normal. [] Eyes: conjunctiva normal, no discharge. [] Neck: Normal range of motion, no tenderness, supple, no stridor. [] Cardiovascular:Heart rate regular rhythm, no murmur [] Lungs & Thorax: Bilateral breath sounds clear to auscultation [] Abdomen: soft, no tenderness, no masses, no pulsatile masses. [] Skin: Warm, dry, no erythema, no rash. [] Back: no CVA tenderness. [] Extremities: No tenderness, no cyanosis, no clubbing, ROM intact, no edema. [] Neurologic: Alert and oriented X 3, no focal deficits noted. [] Psychologic: Affect normal, judgement normal, mood normal. [] EKG EKG [] Radiology/Procedures Radiology/Procedures [] Heart Score C/O Chest Pain: No Risk Factors: Risk Factors: DM, Current or recent (<one month) smoker, HTN, HLP, family history of CAD, obesity. Risk Scores: Risk Factors: DM, Current or recent (<one month) smoker, HTN, HLP, family history of CAD, obesity. Course & Med Decision Making Course & Med Decision Making Patient is a 80-year-old female who presents with a chief complaint of nausea, vomiting and diarrhea Vital signs not concerning. Physical exam noted above. Given fluids and antiemetics. EKG with a rate of 89, QRS of 78, QTc of 444, no STEMI. Troponin normal. On reassessment patient feeling much better and ready to be discharged home. Discussed symptom management at home. Advised to call primary care physician in the morning. Gave return precautions to the ED. Patient grateful, verbalized understanding and agreed with plan of discharge. [] Dragon Disclaimer Dragon Disclaimer This electronic medical record was generated, in whole or in part, using a voice recognition dictation system. Departure Departure: Impression: Primary Impression: Nausea and vomiting Disposition: HOME / SELF CARE / HOMELESS Condition: STABLE Referrals: ALEIDA CABELLO MD (PCP) Patient Instructions: Nausea and Vomiting Additional Instructions: Thank you for coming into the emergency department tonight and allowing us to take care of you. Please read the attached information carefully to go over things we discussed. Please take your nausea medicine as prescribed and as needed. Over the next couple of days eat a light clear diet as we discussed. Please call your primary care physician in the morning to update on your ED visit and set up a follow-up as soon as possible. Please come back with new or concerning symptoms as discussed. HAWA DUNCAN MD Sep 19, 2021 23:17
--- NOTE | 2021-09-19 23:37 | EKG ---
[address] [address] Test Date: 2021-09-19 Test Time: 23:28:06 Pat Name: LISSETT ALCAZAR Department: Room: Gender: F Development Vice President: : 1940 Requested By: HAWA DUNCAN Order Number: [id number] Reading MD: Valeriano Mayes Measurements Intervals [place] Rate: 89 P: -48 MN: 170 QRS: 55 QRSD: 78 T: 16 QT: 364 QTc: 444 Interpretive Statements SINUS RHYTHM NORMAL ECG Electronically Signed On 09-20-2021 19:27:25 MASTER AUTOMOTIVE GLASS TECHNICIAN by Valeriano Mayes
[2021-09-19 23:47] LABS: BASO % 0 % (0-3); EOS # 0.1 x10^3/uL (0.0-0.7); EOS % 1 % (0-3); HEMATOCRIT 42.6 % (36.0-47.0); HEMOGLOBIN 14.4 g/dL (12.0-15.5); LYMPH # 0.2 x10^3/uL (1.0-4.8); LYMPH % 2 % (24-48); MEAN CORPUSCULAR HEMOGLOBIN 31 pg (25-35); MEAN CORPUSCULAR HGB CONC 34 g/dL (31-37); MEAN CORPUSCULAR VOLUME 92 fL (79-100); MONO # 0.3 x10^3/uL (0.0-1.1); MONO % 3 % (0-9); NEUT # 10.8 x10^3uL (1.8-7.7); NEUT % 95 % (31-73); PLATELET COUNT 172 x10^3/uL (140-400); RED BLOOD COUNT 4.62 x10^6/uL (3.50-5.40); RED CELL DISTRIBUTION WIDTH 13.1 % (11.5-14.5); WHITE BLOOD COUNT 11.4 x10^3/uL (4.0-11.0)
[2021-09-19 23:55] LABS: CALCIUM 8.6 mg/dL (8.5-10.1); CREATININE 1.2 mg/dL (0.6-1.0); GFR 43.3; POTASSIUM 4.3 mmol/L (3.5-5.1)
[2021-09-20] MEDS ORDERED: ONDANSETRON 4MG ODT 4TABLET STARTPACK. PO ONE (00:30)
[2021-09-20 00:40] VITALS: BP 143/71
== END 2021-09-20 00:55 | disposition home or self-care (01) ==
LOC: ER 22:59
DX: R11.2 Nausea with vomiting, unspecified (principal); R19.7 Diarrhea, unspecified; F41.9 Anxiety disorder, unspecified; M19.90 Unspecified osteoarthritis, unspecified site; E11.9 Type 2 diabetes mellitus without complications; I10 Essential (primary) hypertension; Z87.440 Personal history of urinary (tract) infections; Z88.2 Allergy status to sulfonamides; Z88.1 Allergy status to other antibiotic agents; Z88.8 Allergy status to other drugs, medicaments and biological substances; Z88.7 Allergy status to serum and vaccine
CPT/HCPCS: 36415; 80048; 84484; 85025; 93005; 96361; 96374; 96375; 99284; J2405; J2765; J7120; Q0162

== ENCOUNTER → 2021-11-08 | Outpatient (CLI) | payer MEDICARE, BC ==
[2021-10-09 08:53] VITALS: BP 153/73
--- NOTE | 2021-11-08 13:19 | RAD ---
EXAM: Chest, 2 views. HISTORY: Pneumonia. COMPARISON: 10/05/2021 FINDINGS: 2 views of the chest are obtained. There has been near complete resolution of previously de monstrated right upper lobe infiltrate. There is mild residual interstitial infiltrate in this locati on. There is no pleural effusion or pneumothorax. The heart is normal in size. IMPRESSION: Significant decrease in previously demonstrated right upper lobe pneumonia. Continued fol low-up to confirm complete resolution is recommended. Electronically signed by: Irene Bernal MD (11/08/2021 1:17 PM) [id number]
== END ==
LOC: RAD 12:09
PROVIDERS: ATTEND Specialist
DX: J18.9 Pneumonia, unspecified organism (principal)
CPT/HCPCS: 71046

== ENCOUNTER → 2021-12-11 | Outpatient (CLI) | payer MEDICARE, BC ==
[2021-10-09 08:53] VITALS: BP 153/73
--- NOTE | 2021-12-11 11:48 | RAD ---
EXAM: XR CHEST 2V 12/11/2021 11:20 AM CLINICAL INDICATION: Status post pneumonia COMPARISON: Chest radiograph 11/09/2019 2:00 AM to 1020 TECHNIQUE: PA and lateral views of the chest FINDINGS: The heart is normal in size. Lungs are well-expanded. Mild residual opacities in the right upper lobe are unchanged from 11/08/2021. There is no new consolidation, pleural effusion, or pneumot horax. No acute osseous abnormality. IMPRESSION: Persistent mild residual opacities in the right upper lobe. Recommend follow-up radiogra ph to ensure resolution, or CT could be obtained to further evaluate. Electronically signed by: Na Hernandez MD (12/11/2021 11:46 AM) [id number]
== END ==
LOC: RAD 10:29
PROVIDERS: ATTEND Specialist
DX: J18.9 Pneumonia, unspecified organism (principal)
CPT/HCPCS: 71046

== ENCOUNTER → 2021-12-15 | Outpatient (CLI) | payer MEDICARE, BC ==
[2021-10-09 08:53] VITALS: BP 153/73
--- NOTE | 2021-12-15 11:58 | RAD ---
CT THORAX WO History: Pneumonia, cough, shortness of air. Comparison: CT chest abdomen and pelvis 09/05/2021. Chest x-ray 10/05/2021, 11/08/2021, 12/11/2021. Technique: Noncontrast CT of the chest. Findings: Assessment is limited by lack of IV contrast. Cardiovascular: Normal caliber aorta. Mild to moderate coronary artery calcification. No pericardial effusion. Normal heart size. Mediastinum and rosalie: No adenopathy. Airways, lungs and pleura: The central airways are patent. There is a bandlike opacity in the right u pper lobe with air adjacent groundglass likely due to partial atelectasis, new from August 2021, in area of prior dense right upper lobe consolidation seen first in September 2021. Partial lingular atel ectatic scarring appears similar to prior CT. No pleural effusion or pneumothorax. Upper abdomen: Left adrenal adenoma measuring 1.5 cm diameter redemonstrated. Osseous structures and soft tissues: Within normal limits for age. Impression: 1. Bandlike consolidation in the right upper lobe with adjacent groundglass opacity likely atelectas is. This is consistent with sequela of resolving right upper lobe pneumonia. No masses identified. ------ Exposure: One or more of the following individualized dose reduction techniques were utilized for thi s examination: 1. Automated exposure control 2. Adjustment of the mA and/or kV according to patient size 3. Use of iterative reconstruction technique. Electronically signed by: Ghassan Mcmahan MD (12/15/2021 11:55 AM) [facility]
== END ==
LOC: CT 09:43
PROVIDERS: ATTEND Specialist
DX: R91.8 Other nonspecific abnormal finding of lung field (principal); I25.10 Atherosclerotic heart disease of native coronary artery without angina pectoris; D35.02 Benign neoplasm of left adrenal gland; J18.9 Pneumonia, unspecified organism
CPT/HCPCS: 71250